=== PATIENT | male | born 1950 | race Caucasian/White ===

== ENCOUNTER → 2016-08-19 | Outpatient (CLI) | payer OTHER ==
[~2016-08-19] MED LIST: B-COCAP2 PO; DIGO0.2518 PO; HYDR-5688 PO; LISI-461 PO; OMEGCAP2 PO; PRED10TA PO; RIVA1TAB4 PO; VITAMIN E PO
[2016-08-19 15:36] LABS: BASO % 0.3 %; BASO ABS # 0.02 K/uL (0-0.2); COMPLETE YES; EOS % 1.3 %; HEMATOCRIT 37.1 % (42-52); LYMPH % 15.9 %; LYMPH ABS # 1.25 K/uL (1.2-3.4); MEAN CORPUSCULAR HEMOGLOBIN 30.1 pg (25-34); MEAN CORPUSCULAR HGB CONC 33.4 g/dl (32-36); MEAN PLATELET VOLUME 9.4 fL (7.4-10.4); MONO % 9.2 %; NEUT % 72.3 %; PLATELET COUNT 367 K/uL (130-400); RED BLOOD COUNT 4.12 M/uL (4.7-6.1); WHITE BLOOD COUNT 7.85 K/uL (4.8-10.8)
[2016-08-19 15:46] LABS: ALT/SGPT 46 U/L (12-78); AST/SGOT 18 U/L (15-37); BLOOD UREA NITROGEN 20 mg/dl (7-18); CALCIUM 9.8 mg/dl (8.5-10.1); CARBON DIOXIDE 28 mmol/L (21-32); CHLORIDE 101 mmol/L (98-107); CREATININE 0.97 mg/dl (0.60-1.40); GLUCOSE 87 mg/dl (70-99); POTASSIUM 4.5 mmol/L (3.5-5.1); SODIUM 137 mmol/L (136-145)
[2016-08-19 15:50] LABS: ALB/GLOB RATIO 1.2 (0.9-2); ALKALINE PHOSPHATASE 63 U/L (45-117)
== END | disposition home or self-care (01) ==
LOC: C.LABSPEC 15:20
PROVIDERS: ATTEND Internal Medicine
DX: I10 Essential (primary) hypertension (principal); I48.91 Unspecified atrial fibrillation; M25.519 Pain in unspecified shoulder

== ENCOUNTER → 2016-10-11 | Outpatient (CLI) | payer OTHER ==
[2016-10-11 14:50] LABS: BASO % 0.1 %; BASO ABS # 0.01 K/uL (0-0.2); COMPLETE YES; HEMATOCRIT 40.2 % (42-52); IG% 0.4 %; LYMPH % 13.5 %; LYMPH ABS # 1.03 K/uL (1.2-3.4); MEAN CELL VOLUME 91.4 fL (80-100); MEAN CORPUSCULAR HEMOGLOBIN 29.3 pg (25-34); MEAN CORPUSCULAR HGB CONC 32.1 g/dl (32-36); MEAN PLATELET VOLUME 9.2 fL (7.4-10.4); MONO % 9.4 %; NEUT % 75.6 %; PLATELET COUNT 273 K/uL (130-400); WHITE BLOOD COUNT 7.62 K/uL (4.8-10.8)
[2016-10-11 15:41] LABS: AST/SGOT 11 U/L (15-37); BLOOD UREA NITROGEN 18 mg/dl (7-18); BUN/CREATININE RATIO 18.6 (10-20); CALCIUM 9.2 mg/dl (8.5-10.1); CARBON DIOXIDE 30 mmol/L (21-32); CHLORIDE 107 mmol/L (98-107); CREATININE 0.97 mg/dl (0.60-1.40); GLUCOSE 130 mg/dl (70-99); POTASSIUM 4.5 mmol/L (3.5-5.1); RHEUMATOID FACTOR < 10.0 U/mL (0-15); SODIUM 141 mmol/L (136-145)
[2016-10-11 15:52] LABS: ALB/GLOB RATIO 1.2 (0.9-2); ALKALINE PHOSPHATASE 51 U/L (45-117); ALT/SGPT 27 U/L (12-78)
[2016-10-11 18:47] LABS: LYME DISEASE AB IGG NEG (NEG); LYME DISEASE AB IGM NEG (NEG)
== END | disposition home or self-care (01) ==
LOC: C.LABSPEC 14:28
PROVIDERS: ATTEND Internal Medicine
DX: I10 Essential (primary) hypertension (principal); R53.83 Other fatigue; M25.50 Pain in unspecified joint; I49.9 Cardiac arrhythmia, unspecified

== ENCOUNTER → 2017-02-10 | Outpatient (CLI) | payer OTHER ==
[~2017-02-10] MED LIST changes: -HYDR-5688 PO
[2017-02-10 13:00] LABS: ALT/SGPT 23 U/L (12-78); AST/SGOT 13 U/L (15-37); BLOOD UREA NITROGEN 32 mg/dl (7-18); BUN/CREATININE RATIO 29.1 (10-20); CALCIUM 9.1 mg/dl (8.5-10.1); CARBON DIOXIDE 26 mmol/L (21-32); CHLORIDE 107 mmol/L (98-107); GLUCOSE 107 mg/dl (70-99); POTASSIUM 4.9 mmol/L (3.5-5.1); SODIUM 139 mmol/L (136-145)
[2017-02-10 13:10] LABS: ALB/GLOB RATIO 1.2 (0.9-2); ALKALINE PHOSPHATASE 54 U/L (45-117)
== END | disposition home or self-care (01) ==
LOC: C.LABSPEC 12:13
PROVIDERS: ATTEND Internal Medicine
DX: I48.91 Unspecified atrial fibrillation (principal); I10 Essential (primary) hypertension; R53.83 Other fatigue; M79.1 Myalgia; R25.2 Cramp and spasm

== ENCOUNTER → 2017-08-17 | Outpatient (CLI) | payer OTHER ==
[2017-08-17 14:42] LABS: BLOOD UREA NITROGEN 15 mg/dl (7-18); CALCIUM 9.9 mg/dl (8.5-10.1); CARBON DIOXIDE 28 mmol/L (21-32); CREATININE 0.93 mg/dl (0.60-1.40); GLUCOSE 131 mg/dl (70-99); POTASSIUM 4.5 mmol/L (3.5-5.1); SODIUM 138 mmol/L (136-145)
== END | disposition home or self-care (01) ==
LOC: C.LABSPEC 12:27
PROVIDERS: ATTEND Internal Medicine
DX: R53.83 Other fatigue (principal); I48.91 Unspecified atrial fibrillation; I10 Essential (primary) hypertension; E78.5 Hyperlipidemia, unspecified

== ENCOUNTER → 2018-02-14 | Outpatient (CLI) | payer OTHER ==
[2018-02-14 13:44] LABS: BASO % 0.1 %; BASO ABS # 0.01 K/uL (0-0.2); EOS % 1.1 %; EOS ABS # 0.09 K/uL (0-0.5); HEMATOCRIT 38.3 % (42-52); HEMOGLOBIN 12.4 g/dL (14.0-18.0); IG# 0.06 K/uL (0.00-0.02); LYMPH % 19.6 %; MEAN CELL VOLUME 91.4 fL (80-100); MEAN CORPUSCULAR HEMOGLOBIN 29.6 pg (25-34); MEAN CORPUSCULAR HGB CONC 32.4 g/dl (32-36); MEAN PLATELET VOLUME 9.2 fL (7.4-10.4); MONO % 9.2 %; MONO ABS # 0.75 K/uL (0.11-0.59); NEUT % 69.3 %; NEUT ABS # 5.64 K/uL (1.4-6.5); PLATELET COUNT 394 K/uL (130-400); RED CELL DISTRIBUTION WIDTH CV 13.3 % (11.5-14.5); WHITE BLOOD COUNT 8.15 K/uL (4.8-10.8)
[2018-02-14 14:15] LABS: ALBUMIN 3.5 gm/dl (3.4-5.0); ALKALINE PHOSPHATASE 52 U/L (45-117); ALT/SGPT 41 U/L (12-78); AST/SGOT 15 U/L (15-37); BLOOD UREA NITROGEN 29 mg/dl (7-18); CALCIUM 9.4 mg/dl (8.5-10.1); CARBON DIOXIDE 26 mmol/L (21-32); CHOLESTEROL 100 mg/dl (0-200); CREATININE 0.95 mg/dl (0.60-1.40); GLUCOSE 88 mg/dl (70-99); LDL CHOLESTEROL (DIRECT) 71 mg/dl; SODIUM 141 mmol/L (136-145); TOTAL PROTEIN 7.2 gm/dl (6.4-8.2)
[2018-02-15 05:50] LABS: HEMOGLOBIN A1C 5.9 % (4.5-5.6)
== END | disposition home or self-care (01) ==
LOC: C.LABSPEC 13:17
PROVIDERS: ATTEND Internal Medicine
DX: R73.9 Hyperglycemia, unspecified (principal); I10 Essential (primary) hypertension; E78.5 Hyperlipidemia, unspecified; I48.91 Unspecified atrial fibrillation; M25.551 Pain in right hip

== ENCOUNTER → 2018-02-19 | Outpatient (CLI) | payer OTHER ==
[2018-02-19 13:02] LABS: BASO % 0.2 %; BASO ABS # 0.02 K/uL (0-0.2); EOS % 1.4 %; EOS ABS # 0.13 K/uL (0-0.5); HEMATOCRIT 38.2 % (42-52); HEMOGLOBIN 12.4 g/dL (14.0-18.0); IG# 0.21 K/uL (0.00-0.02); LYMPH % 13.9 %; LYMPH ABS # 1.28 K/uL (1.2-3.4); MEAN CELL VOLUME 91.6 fL (80-100); MEAN CORPUSCULAR HEMOGLOBIN 29.7 pg (25-34); MEAN CORPUSCULAR HGB CONC 32.5 g/dl (32-36); MEAN PLATELET VOLUME 8.7 fL (7.4-10.4); MONO % 5.9 %; MONO ABS # 0.54 K/uL (0.11-0.59); NEUT % 76.3 %; PLATELET COUNT 401 K/uL (130-400); RED CELL DISTRIBUTION WIDTH CV 13.2 % (11.5-14.5); RED CELL DISTRIBUTION WIDTH SD 44.5 fL (36.4-46.3); WHITE BLOOD COUNT 9.18 K/uL (4.8-10.8)
== END | disposition home or self-care (01) ==
LOC: C.LABBC 10:27
PROVIDERS: ATTEND Family Medicine
DX: M25.559 Pain in unspecified hip (principal)

== ENCOUNTER 2023-07-31 20:00 | Observation (INO) ==
[2023-07-31 22:07] LABS: Basophils # (auto) 0.02 K/uL (0.00-0.20); Basophils % (auto) 0.3 %; Eosinophils # (auto) 0.28 K/uL (0.00-0.50); Eosinophils % (auto) 4.8 %; Hematocrit (blood only) 31.9 % (42.0-52.0); Hemoglobin 10.4 g/dl (14.0-18.0); Immature Granulocytes # (auto) 0.04 K/uL (0.01-0.20); Immature Granulocytes % (auto) 0.7 %; Lymphocytes # (auto) 1.18 K/uL (1.20-3.40); Lymphocytes % (auto) 20.3 %; Mean Corpuscular Hemoglobin 29.9 pg (25.0-34.0); Mean Corpuscular Hgb Conc 32.6 g/dL (32.0-36.0); Mean Corpuscular Volume 91.7 fL (80.0-100.0); Mean Platelet Volume 9.2 fL (9.4-12.4); Monocytes # (auto) 0.53 K/uL (0.11-0.59); Monocytes % (auto) 9.1 %; Neutrophils # (auto) 3.76 K/uL (1.40-6.50); Neutrophils % (auto) 64.8 %; Platelet Count 234 K/uL (130-400); RDW Coefficient of Variation 13.7 % (11.5-14.5); RDW Standard Deviation 45.6 fL (36.4-46.3); Red Blood Count 3.48 M/uL (4.70-6.10); White Blood Count 5.81 K/ul (4.8-10.8)
[2023-07-31 22:25] LABS: Albumin Globulin Ratio 1.5 (0.9-2); Albumin Level 4.4 gm/dl (3.4-5.0); BUN Creatinine Ratio 30.4 (10-20); Bilirubin,Total 0.5 mg/dl (0.2-1.0); Calcium 9.4 mg/dl (8.6-10.3); Creatinine Clr Calc Pharmacy 68.9 ml/min; Est GFR (African American) 54.8 ml/min; Est GFR (Non-African American) 47.3 ml/min; Potassium 5.9 mmol/L (3.5-5.1); Total Protein 7.4 gm/dl (6.0-8.3)
[2023-07-31 22:32] LABS: Troponin I High Sensitivity 7.9 pg/ml (0-20)
[2023-07-31] MEDS: CALCIUM GLUCONATE 1,000 MG/60 ML BAG IV STA (23:23)
[2023-07-31] MEDS: CALCIUM GLUCONATE 10% 1,000 MG in SODIUM CHLOR 0.9% MINI-B 50 ML IV ONE (23:25)
--- NOTE | 2023-07-31 23:50 | Emergency Department Note ---
Impression & Plan Acute hyperkalemia, Acute electrocardiogram changes ED Provider Note HISTORY OF PRESENT ILLNESS: Patient is a 72-year-old male presenting with hyperkalemia. Patient reports he was at an outpatient cardiology clinic appointment today and had laboratory workup done and was called by his repairer pump that his potassium was elevated and he needed to go to the ER for an EKG. Patient denies any chest pain or shortness of breath. He denies any vomiting or abdominal pain. Denies any confusion or headache. He has a previous history of a left nephrectomy. ROS: as above PHYSICAL EXAM: Constitutional: Patient appears in no acute distress. HENT: Head: Normocephalic and atraumatic. Eyes: EOMI, PERRL Mouth/Throat: Mucous membranes moist. Neck: Trachea midline. Neck supple. Cardiovascular: Irregular rhythm. No murmurs, rubs or gallops. Intact distal pulses. Pulmonary/Chest: No respiratory distress. Breath sounds clear and equal bilaterally. No wheezes or rales. Abdominal: Abdomen soft, no tenderness, rebound or guarding. Musculoskeletal: No edema, tenderness or deformity noted. Skin: Warm and dry. No rash, erythema, pallor or cyanosis Psychiatric: Appropriate mood and affect for situation. Neurological: Alert and keenly responsive. CN II-XII grossly intact, moving all extremities equally and fully. MDM: - Vitals signs stable. - History obtained via patient. Patient presents with hyperkalemia. Patient had laboratory workup done outpatient clinic appointment today and was found to be hyperkalemic and was referred to the ER. Denies any complaints on arrival to the ER. - Chronic conditions affecting care: CHF; HTN; HLD; Afib - Differential diagnoses include, but are not limited to: medication reaction; ACS; CKD; dysrhythmia - Order placed for continuous cardiac monitoring. At this time, monitor showed rate of 80 bpm with irregular rhythm, per my interpretation. - External medical records reviewed. Heart failure visit note dated 07/31/2023 was reviewed. He follows in their clinic for nonischemic cardiomyopathy, atrial fibrillation and heart failure. - EKG interpreted by myself showed atrial fibrillation. Rate 80 bpm. QT 358. No acute ischemic changes. However, noted to have some T wave peaking in V3 through V5. - Laboratory workup interpreted by myself showed normal WBC; hyperkalemia (K 5.9); CKD; normal troponin; normal BNP - Patient given 1g IV calcium, 1L NS, 10 units IV insulin and 50 mL IV dextrose for hyperkalemia. - Given patient's hyperkalemia and EKG changes, will admit to hospitalist. - Hyperkalemia likely secondary to patient's entresto medication. - Discussion was had with child care sitter about patient's case and need for admission - Hospitalist consulted for admission - [facility] for further evaluation and management. ASSESSMENT AND PLAN: Diagnosis: hyperkalemia; EKG changes Plan: admit Past Med/Surg History Medical History Atrial fibrillation Degenerative arthritis of knee, bilateral Dilatation of thoracic aorta Dyslipidemia Failed total hip arthroplasty History of cardioversion HTN (hypertension) Mixed hyperlipidemia Osteoarthritis Prediabetes Primary hypertension Surgical History H/O bilateral hip replacements History of adenoidectomy History of cardiac cath History of colonoscopy History of tonsillectomy History of total hip arthroplasty Family History Mother Diabetes Lung cancer Father Heart disease Multiple myeloma Brother Diabetes Heart disease Other No family history of adverse response to anesthesia No significant family history Denies family history of Ovarian cancer Prostate cancer Breast cancer Colorectal cancer Social History Smoking Status: Never smoker Second Hand Exposure: No; Do You Dip or Chew Tobacco: No; Hx Alcohol Use: Yes Hx Substance Use: No Preferred Language: Welsh Communication Ability: Effective Visual Impairment: No Limitations Hearing Ability: Hard of Hearing Manager Integrated Required: No Beliefs That Will Affect Care: None marital status: Current Living Situation: Spouse current occupational status: employed and retired Feels Safe at Home: Yes Dental Care, Regularly: No Seatbelt Use: always Assistive Devices: None Allergies Allergies Allergy/AdvReac Type Severity Reaction Status Date / Time No Known Allergies Allergy Unknown Verified 07/31/23 13:58 Home Meds Home Medications Medication Instructions Recorded Confirmed rivaroxaban 20 mg tablet (Xarelto) 20 mg PO QAM 04/19/18 08/01/23 vitamin B complex 1 cap PO QAM 01/28/22 08/01/23 multivitamin 1 tab PO QAM 04/07/22 08/01/23 omega-3 fatty acids-fish oil 360 1 cap PO QAM 04/07/22 08/01/23 mg-1,200 mg capsule (Fish Oil) selenium 100 mcg tablet 100 mcg PO QAM 04/07/22 08/01/23 ashwagandha extract 1 dose PO .qd 06/13/23 08/01/23 lxcnkzj-slbb-ugrhz-oreg-capryl 1 dose PO .qd 06/13/23 08/01/23 calcium carbonate 500 mg calcium 500 mg PO .COMPLEX 07/10/23 08/01/23 (1,250 mg) chewable tablet (Calcium 500) magnesium 200 mg tablet 400 mg PO QAM 07/10/23 08/01/23 digoxin 250 mcg (0.25 mg) tablet 250 mcg PO QAM 08/01/23 08/01/23 metoprolol succinate 100 mg 100 mg PO QAM 08/01/23 08/01/23 tablet,extended release 24 hr sacubitril 49 mg-valsartan 51 mg 1 tab PO .ON HOLD 08/01/23 08/01/23 tablet (Entresto) Previous Rx's Medication Instructions Recorded furosemide 20 mg tablet 20 mg PO DAILY PRN weight gain, 07/31/23 edema, SOB #30 tabs Results & Data (ED) Vital Signs Vital Signs - 24 hr 07/31/23 20:52 07/31/23 23:11 07/31/23 23:26 Temperature 36.6 C Temperature Source Temporal Artery Scan Pulse Rate 78 73 Pulse Rate [Apical] 80 Respiratory Rate 20 21 Respiratory Effort / Characteristics Non-Labored Spontaneous Respiratory Depth Normal Respiratory Pattern Regular Blood Pressure 134/84 Blood Pressure [Right Arm] 133/82 Blood Pressure Mean 100 Blood Pressure Mean [Right Arm] 99 Pulse Oximetry 96 97 Oxygen Delivery Method Room Air Room Air Sepsis Recent Fever Within 48 Hours No Sepsis New/Unexplained Change in Mental Status No Sepsis Action Taken by Nursing No Action Required Laboratory Data 07/31/23 21:50 07/31/23 21:50 Lab Results 07/31/23 Range/Units 21:50 WBC 5.81 (4.8-10.8) K/ul RBC 3.48 L (4.70-6.10) M/uL Hgb 10.4 L (14.0-18.0) g/dl Hct 31.9 L (42.0-52.0) % MCV 91.7 (80.0-100.0) fL MCH 29.9 (25.0-34.0) pg MCHC 32.6 (32.0-36.0) g/dL RDW Std Deviation 45.6 (36.4-46.3) fL RDW Coeff of Dennis 13.7 (11.5-14.5) % Plt Count 234 (130-400) K/uL MPV 9.2 L (9.4-12.4) fL Immature Gran % (Auto) 0.7 % Neut % (Auto) 64.8 % Lymph % (Auto) 20.3 % [place] % (Auto) 9.1 % Eos % (Auto) 4.8 % Baso % (Auto) 0.3 % Neut # (Auto) 3.76 (1.40-6.50) K/uL Lymph # (Auto) 1.18 L (1.20-3.40) K/uL [place] # (Auto) 0.53 (0.11-0.59) K/uL Eos # (Auto) 0.28 (0.00-0.50) K/uL Baso # (Auto) 0.02 (0.00-0.20) K/uL Immature Gran # (Auto) 0.04 (0.01-0.20) K/uL Sodium 137 (136-145) mmol/L Potassium 5.9 H (3.5-5.1) mmol/L Chloride 108 H (98-107) mmol/L Carbon Dioxide 24 (21-32) mmol/L Anion Gap 5 (3-11) BUN 45 H (6-23) mg/dl Creatinine 1.48 H (0.6-1.4) mg/dl Est Cr Clr Drug Dosing 68.9 ml/min Est GFR ( Amer) 54.8 ml/min Est GFR (Non-Af Amer) 47.3 ml/min BUN/Creatinine Ratio 30.4 H (10-20) Glucose 78 (70-99(Fasting)) mg/dl Calcium 9.4 (8.6-10.3) mg/dl Magnesium 2.0 (1.7-2.4) mg/dl Total Bilirubin 0.5 (0.2-1.0) mg/dl AST 13 (13-39) U/L ALT 10 (7-52) U/L Alkaline Phosphatase 50 (34-104) U/L Troponin I High Sens 7.9 (0-20) pg/ml B-Natriuretic Peptide 56 (0-100) pg/ml Total Protein 7.4 (6.0-8.3) gm/dl Albumin 4.4 (3.4-5.0) gm/dl Globulin 3.0 (2.5-4.0) gm/dl Albumin/Globulin Ratio 1.5 (0.9-2) Administered Medications Discontinued Medications Dextrose (Dextrose 50% 50 Ml Syringe) 50 ml IV NOW STA Stop: 07/31/23 22:49 Last Admin: 08/01/23 00:10 Dose: 50 ml Documented By: MED Sodium Chloride (Nss) 1,000 mls @ 999 mls/hr IV .Q1H1M ONE Stop: 07/31/23 23:48 Last Admin: 08/01/23 00:17 Dose: 999 mls/hr Documented By: MED Calcium Gluconate () 1,000 mg in 60 mls @ 240 mls/hr IV NOW STA Stop: 07/31/23 23:02 Last Admin: 07/31/23 23:23 Dose: 240 mls/hr Documented By: MED Calcium Gluconate 1,000 mg/ (Sodium Chloride) 60 mls @ 240 mls/hr IV NOW ONE Stop: 07/31/23 23:02 Last Admin: 07/31/23 23:25 Dose: Not Given Documented By: MED Insulin Human Regular 10 units (/ Syringe) 9.9 mls @ 3 mls/sec IV ONE STA Stop: 07/31/23 22:49 Last Admin: 08/01/23 00:16 Dose: 3 mls/sec Documented By: MED Co-signed By: CHAVEZ Discharge Plan Visit Data Chief Complaint: Referred by Doctor Stated Complaint: PT NEEDS ECG ED Provider: Nydia Escobar Discharge Problem: Acute hyperkalemia, Acute electrocardiogram changes Forms Stand Alone Forms: [facility] Prescriptions Prescriptions: No Action ashwagandha extract 1 dose PO .qd kmwbgxa-oyhs-afpto-oreg-capryl 1 dose PO .qd furosemide 20 mg tablet 20 mg PO DAILY PRN (Reason: weight gain, edema, SOB) Qty: 30 3RF Xarelto 20 mg Tablet 20 mg PO QAM vitamin B complex Capsule 1 cap PO QAM multivitamin Tablet 1 tab PO QAM selenium 100 mcg tablet 100 mcg PO QAM omega-3 fatty acids-fish oil [Fish Oil] 360-1,200 mg capsule 1 cap PO QAM magnesium 200 mg tablet 400 mg PO QAM calcium carbonate [Calcium 500] 500 mg calcium (1,250 mg) tablet,chewable 500 mg PO .COMPLEX Rx Instructions: 500 mg orally 2X WK; metoprolol succinate 100 mg tablet extended release 24 hr 100 mg PO QAM digoxin 250 mcg (0.25 mg) tablet 250 mcg PO QAM Entresto 49-51 mg tablet 1 tab PO .ON HOLD Rx Instructions: ordered am and pm Referrals Referrals: Anastacia Hdz MD [Primary Care Provider] -
[2023-08-01] MEDS: DEXTROSE 50% 50 ML SYRINGE IV STA (00:10)
[2023-08-01] MEDS: INSULIN HUMAN REGULAR PER UNIT 10 UNITS in SYRINGE 9.9 ML IV STA (00:16)
[2023-08-01] MEDS: SODIUM CHLORIDE 0.9% 1,000 ML IV ONE (00:17)
--- NOTE | 2023-08-01 01:10 | History & Physical Report ---
Date of Service August 01, 2023 Assessment & Plan (1) Acute hyperkalemia: (2) Acute electrocardiogram changes: (3) Permanent atrial fibrillation: (4) HFrEF (heart failure with reduced ejection fraction): (5) Nonischemic cardiomyopathy: (6) Primary hypertension: (7) Renal oncocytoma of left kidney: (8) Acute kidney injury superimposed on CKD: Plan Acute hyperkalemia with peaked T waves on EKG/acute kidney injury superimposed on CKD- Potassium 5.9 and creatinine 1.48 upon admission After receiving normal saline 1 L, calcium gluconate 1 g IV, D50 followed by regular insulin 10 units IV: Potassium 4.9 and creatinine 1.41 Baseline creatinine on 07/25/2022 was 1.09, with new baseline on 06/28/2023 of 1.41 Patient prefers no additional IV fluids, and will further address fluid intake orally Continue to hold Entresto Continue increase metoprolol succinate dose of 100 mg daily Digoxin level 0.7, despite renal insufficiency, will continue current dosing Permanent atrial fibrillation/hypertension/cardiomyopathy/HFrEF- Continue digoxin, metoprolol succinate, Xarelto Hold Entresto as noted until seen by heart failure clinic History of Present Illness Chief Complaint: The patient was referred to the emergency department after having outpatient cardiology laboratories which showed elevated potassium Primary Care Provider: Anastacia Hdz MD The patient is a 72-year-old male with a past medical history including renal oncocytoma of left kidney status post nephrectomy, mediastinal adenopathy, hypertension, mixed hyperlipidemia, permanent atrial fibrillation, thoracic aortic aneurysm, HFrEF, nonischemic cardiomyopathy, mitral regurgitation and tricuspid regurgitation. He reports that outpatient cardiology laboratories revealed elevated potassium, which time he was told to hold his Entresto, his metoprolol succinate was doubled from 50 to 100 mg, and he was advised to come to the ED for an EKG and further assessment. Patient reports that he had been off his digoxin for a brief and full around a general surgery that resulted with resulting complications. He at that time was retaining a lot of fluid, and reports that when he resumed the digoxin he felt much better, and had lost significant amount of fluid at that time. Allergies Allergy/AdvReac Type Severity Reaction Status Date / Time No Known Allergies Allergy Unknown Verified 07/31/23 13:58 Home Medications Medication Instructions Recorded Confirmed Type rivaroxaban 20 mg tablet (Xarelto) 20 mg PO QAM 04/19/18 08/01/23 History vitamin B complex 1 cap PO QAM 01/28/22 08/01/23 History multivitamin 1 tab PO QAM 04/07/22 08/01/23 History omega-3 fatty acids-fish oil 360 1 cap PO QAM 04/07/22 08/01/23 History mg-1,200 mg capsule (Fish Oil) selenium 100 mcg tablet 100 mcg PO QAM 04/07/22 08/01/23 History ashwagandha extract 1 dose PO .qd 06/13/23 08/01/23 History nnluvrm-zjbe-etadg-oreg-capryl 1 dose PO .qd 06/13/23 08/01/23 History calcium carbonate 500 mg calcium 500 mg PO .COMPLEX 07/10/23 08/01/23 History (1,250 mg) chewable tablet (Calcium 500) magnesium 200 mg tablet 400 mg PO QAM 07/10/23 08/01/23 History furosemide 20 mg tablet 20 mg PO DAILY PRN weight gain, 07/31/23 08/01/23 Rx edema, SOB #30 tabs digoxin 250 mcg (0.25 mg) tablet 250 mcg PO QAM 08/01/23 08/01/23 History metoprolol succinate 100 mg 100 mg PO QAM 08/01/23 08/01/23 History tablet,extended release 24 hr sacubitril 49 mg-valsartan 51 mg 1 tab PO .ON HOLD 08/01/23 08/01/23 History tablet (Entresto) Past Med/Surg History Medical History Atrial fibrillation Degenerative arthritis of knee, bilateral Dilatation of thoracic aorta Dyslipidemia Failed total hip arthroplasty History of cardioversion HTN (hypertension) Mixed hyperlipidemia Osteoarthritis Prediabetes Primary hypertension Surgical History H/O bilateral hip replacements History of adenoidectomy History of cardiac cath History of colonoscopy History of tonsillectomy History of total hip arthroplasty Family History Mother Diabetes Lung cancer Father Heart disease Multiple myeloma Brother Diabetes Heart disease Other No family history of adverse response to anesthesia No significant family history Denies family history of Ovarian cancer Prostate cancer Breast cancer Colorectal cancer Social History Smoking Status: Never smoker Second Hand Exposure: No; Do You Dip or Chew Tobacco: No; Hx Alcohol Use: Yes Hx Substance Use: No Preferred Language: Kittitian Communication Ability: Effective Visual Impairment: No Limitations Hearing Ability: Hard of Hearing Mural Painter Required: No Beliefs That Will Affect Care: None marital status: Current Living Situation: Spouse current occupational status: employed and retired Feels Safe at Home: Yes Dental Care, Regularly: No Seatbelt Use: always Assistive Devices: None Review of Systems Review of Systems: The patient denies chest pain, palpitations, cough, sore throat, fevers, chills, sweats, fatigue, nausea, vomiting, diarrhea , constipation, abdominal pain, pelvic pain, blood in urine or stool, dysuria, urinary frequency or urgency, lightheadedness, dizziness, headache, memory loss, loss of consciousness, rash, abnormal bruising or bleeding, imbalance, focal or generalized weakness, numbness or tingling in arms or legs, generalized arthralgias or myalgias, back or neck pain, or night sweats. The review of systems is otherwise negative other than for that already noted above, and at least 10 systems have been reviewed. Physical Exam Physical Exam: The patient is awake, alert and oriented 3, well developed and well nourished, normocephalic and atraumatic, lying in bed and in no acute distress. HEENT--PERRL, EOMI, mucous membranes and oropharynx normal Neck--supple. No JVD. No bruits. Thyroid normal, trachea midline, no adenopathy. Heart--atrial fibrillation. No murmurs, rubs or gallops. Lungs--clear bilaterally, no respiratory distress, no accessory muscle use. Abdomen--normal bowel sounds and soft. Nontender. Nondistended, no hernias or masses, no organomegaly. Extremities--no cyanosis or clubbing. 1+ bilateral pretibial pitting edema. Dermatologic--normal skin turgor, normal color, no abnormal lymph nodes, no rash. Neurologic--cranial nerves II through XII grossly intact. Rheumatologic--normal range of motion. Psychiatric--normal affect. Results & Data Results & Data Vital Signs (Past 12 Hours) Vital Signs Temp Pulse Pulse Resp BP BP Pulse Ox 07/31/23 23:26 80 21 133/82 97 07/31/23 23:11 73 07/31/23 20:52 36.6 C 78 20 134/84 96 O2 Del Method 07/31/23 23:26 Room Air 07/31/23 23:11 07/31/23 20:52 Room Air Laboratory Results Laboratory Results WBC 5.81 K/ul (4.8-10.8) 07/31/23 21:50 RBC 3.48 M/uL (4.70-6.10) L 07/31/23 21:50 Hgb 10.4 g/dl (14.0-18.0) L 07/31/23 21:50 Hct 31.9 % (42.0-52.0) L 07/31/23 21:50 MCV 91.7 fL (80.0-100.0) 07/31/23 21:50 MCH 29.9 pg (25.0-34.0) 07/31/23 21:50 MCHC 32.6 g/dL (32.0-36.0) 07/31/23 21:50 RDW Std Deviation 45.6 fL (36.4-46.3) 07/31/23 21:50 RDW Coeff of [place] 13.7 % (11.5-14.5) 07/31/23 21:50 Plt Count 234 K/uL (130-400) 07/31/23 21:50 MPV 9.2 fL (9.4-12.4) L 07/31/23 21:50 Immature Gran % (Auto) 0.7 % 07/31/23 21:50 Neut % (Auto) 64.8 % 07/31/23 21:50 Lymph % (Auto) 20.3 % 07/31/23 21:50 [place] % (Auto) 9.1 % 07/31/23 21:50 Eos % (Auto) 4.8 % 07/31/23 21:50 Baso % (Auto) 0.3 % 07/31/23 21:50 Neut # (Auto) 3.76 K/uL (1.40-6.50) 07/31/23 21:50 Lymph # (Auto) 1.18 K/uL (1.20-3.40) L 07/31/23 21:50 [place] # (Auto) 0.53 K/uL (0.11-0.59) 07/31/23 21:50 Eos # (Auto) 0.28 K/uL (0.00-0.50) 07/31/23 21:50 Baso # (Auto) 0.02 K/uL (0.00-0.20) 07/31/23 21:50 Immature Gran # (Auto) 0.04 K/uL (0.01-0.20) 07/31/23 21:50 Sodium 140 mmol/L (136-145) 08/01/23 01:35 Potassium 4.9 mmol/L (3.5-5.1) 08/01/23 01:35 Chloride 111 mmol/L (98-107) H 08/01/23 01:35 Carbon Dioxide 23 mmol/L (21-32) 08/01/23 01:35 Anion Gap 6 (3-11) 08/01/23 01:35 BUN 47 mg/dl (6-23) H 08/01/23 01:35 Creatinine 1.41 mg/dl (0.6-1.4) H 08/01/23 01:35 Est Cr Clr Drug Dosing 72.3 ml/min 08/01/23 01:35 Est GFR ( Amer) 58.1 ml/min 08/01/23 01:35 Est GFR (Non-Af Amer) 50.1 ml/min 08/01/23 01:35 BUN/Creatinine Ratio 33.3 (10-20) H 08/01/23 01:35 Glucose 67 mg/dl (70-99(Fasting)) L 08/01/23 01:35 POC Glucose 92 mg/dl (70-99) 08/01/23 01:51 Calcium 9.1 mg/dl (8.6-10.3) 08/01/23 01:35 Magnesium 2.0 mg/dl (1.7-2.4) 07/31/23 21:50 Total Bilirubin 0.5 mg/dl (0.2-1.0) 07/31/23 21:50 AST 13 U/L (13-39) 02/05/24 21:50 ALT 10 U/L (7-52) 07/31/23 21:50 Alkaline Phosphatase 50 U/L (34-104) 07/31/23 21:50 Troponin I High Sens 7.9 pg/ml (0-20) 07/31/23 21:50 B-Natriuretic Peptide 56 pg/ml (0-100) 07/31/23 21:50 Total Protein 7.4 gm/dl (6.0-8.3) 07/31/23 21:50 Albumin 4.4 gm/dl (3.4-5.0) 07/31/23 21:50 Globulin 3.0 gm/dl (2.5-4.0) 07/31/23 21:50 Albumin/Globulin Ratio 1.5 (0.9-2) 07/31/23 21:50 Digoxin 0.7 ng/ml (0.8-2.0) L 08/01/23 01:35 Code Status & VTE Plan Code Status Full code VTE Prophylaxis Plan VTE Prophylaxis will be ordered: Yes PG Care Time/CCT Total # of Minutes Spent Total Time Spent with Patient: Total time spent is greater than 50% in coordination of care (as documented) at patient's floor/unit and/or counseling patient: Coding Level of Care Code 86271 INT INP/OBS CARE 3/75MIN Diagnoses Acute hyperkalemia E87.5 Acute electrocardiogram changes R94.31 Permanent atrial fibrillation I48.21 HFrEF (heart failure with reduced ejection fraction) I50.20 Nonischemic cardiomyopathy I42.8 Primary hypertension I10 Renal oncocytoma of left kidney D30.02 Acute kidney injury superimposed on CKD N17.9; N18.9
[2023-08-01 02:05] LABS: BUN Creatinine Ratio 33.3 (10-20); Calcium 9.1 mg/dl (8.6-10.3); Creatinine Clr Calc Pharmacy 72.3 ml/min; Est GFR (African American) 58.1 ml/min; Est GFR (Non-African American) 50.1 ml/min; Potassium 4.9 mmol/L (3.5-5.1)
[2023-08-01] MEDS ORDERED: ACETAMINOPHEN 325 MG TAB PO PRN (02:48)
[2023-08-01] MEDS ORDERED: ONDANSETRON INJ 2 MG/ML 2 ML VIAL IV PRN (02:48)
[2023-08-01] MEDS: STAT IV/IM STA (07:34)
--- NOTE | 2023-08-01 08:10 | Electrocardiogram Report ---
Test Reason : Blood Pressure : / mmHG Vent. Rate : 080 BPM Atrial Rate : 000 BPM P-R Int : 000 ms QRS Dur : 102 ms QT Int : 358 ms P-R-T Axes : 000 042 064 degrees QTc Int : 412 ms Atrial fibrillation Abnormal ECG When compared with ECG of 26-AUG-2020 12:14, No significant change was found Confirmed by Chon Doyle ([id number]) on 08/01/2023 8:10:14 AM Referred By: REFERRED SELF Confirmed By:Chon Doyle
[2023-08-01] MEDS: MAGNESIUM OXIDE 400 MG TAB PO SCH (08:37)
[2023-08-01] MEDS: OMEGA-3 (PURIFIED FISH OIL) 1 GM CAP PO SCH (08:37)
[2023-08-01] MEDS: MULTIVITAMIN TAB PO SCH (08:38)
[2023-08-01] MEDS: METOPROLOL SUCC 50MG EXT REL TAB PO SCH (08:38)
[2023-08-01] MEDS: VITAMIN B COMPLEX TAB PO SCH (08:38)
[2023-08-01 10:50] LABS: BUN Creatinine Ratio 33.3 (10-20); Est GFR (African American) 64.7 ml/min; Est GFR (Non-African American) 55.8 ml/min; Magnesium 1.9 mg/dl (1.7-2.4); Potassium 5.5 mmol/L (3.5-5.1)
--- NOTE | 2023-08-01 11:02 | History & Physical Bridge Note ---
Date of Service August 01, 2023 History & Physical Bridge Note I have examined the patient, reviewed the History & Physical and in the interval since the performance of the History & Physical I have noted the following changes of clinical significance: Pt feeling well, no SOB over usual, no CP. Leg swelling he says is the best it has been in a while. He reports he has been eating a lot of potasisum lately and making a lot of smoothies with bananas and grapes and other fruits. Tele with rate controlled Afib Vitals reviewed NAD, obese, AAOx3 irreg irreg, no mger, nl S1S2, legs 1+ pitting edema to knees bilat chronic venous stasis changes of legs Abd +BS soft incision scars from nephrectomy and hernia repair healed, small mass palpable left of midline incision nontender, no erythema-pt reports told this is a resolving hematoma from the recent surgery Repeat BMP now again shows hyperkalemia with K+ 5.5, commercial property manager improved to 1.2 Repeat ECG no further peaked T waves Would recommend continued stay for ongoing hyperkalemia, likely related to Entresto use, possibly some hemolysis from the resolving hematoma although this is fairly small. Check BMP again this afternoon at 1600 Give Patiromer x 1 dose now Give lasix 20mg IV x 1 now Change diet to low K+ diet
--- NOTE | 2023-08-01 11:06 | Electrocardiogram Report ---
Test Reason : Blood Pressure : / mmHG Vent. Rate : 084 BPM Atrial Rate : 000 BPM P-R Int : 000 ms QRS Dur : 104 ms QT Int : 360 ms P-R-T Axes : 000 025 044 degrees QTc Int : 425 ms Atrial fibrillation with premature ventricular or aberrantly conducted complexes Abnormal ECG When compared with ECG of 31-JUL-2023 21:41, No significant change was found Confirmed by Chon Doyle ([id number]) on 08/01/2023 11:06:35 AM Referred By: REFERRED SELF Confirmed By:Chon Doyle
[2023-08-01] MEDS: PATIROMER CALCIUM SORBITEX 8.4 GM PACK PO SCH (11:47)
[2023-08-01] MEDS: FUROSEMIDE INJ 20 MG/2 ML VIAL IV ONE (11:47)
[2023-08-01 13:25] LABS: BUN Creatinine Ratio 31.5 (10-20); Calcium 9.7 mg/dl (8.6-10.3); Creatinine Clr Calc Pharmacy 79.2 ml/min; Est GFR (African American) 65.9 ml/min; Est GFR (Non-African American) 56.9 ml/min; Potassium 5.7 mmol/L (3.5-5.1)
--- NOTE | 2023-08-01 13:55 | Discharge Summary ---
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 He reports that outpatient cardiology laboratories revealed elevated potassium, which time he was told to hold his Entresto, his metoprolol succinate was doubled from 50 to 100 mg, and he was advised to come to the ED for an EKG and further assessment. Patient reports that he had been off his digoxin for a brief and full around a general surgery that resulted with resulting complications. He at that time was retaining a lot of fluid, and reports that when he resumed the digoxin he felt much better, and had lost significant amount of fluid at that time. Principal Dx & Hospital Course #1 = Principal Diagnosis (1) Acute hyperkalemia: Acute hyperkalemia with peaked T waves on EKG/acute kidney injury superimposed on CKD- Potassium 5.9 and creatinine 1.48 upon admission down from 6.1 on outpatient labs earlier that day Was placed on Entresto as an outpt 2 weeks prior. has solitary kidney Reports he has been eating a lot of potassium-rich foods at home after we reviewed what those foods were. In the ER, he received normal saline 1 L, calcium gluconate 1 g IV, D50 followed by regular insulin 10 units IV Potassium 4.9 and creatinine 1.41 after these interventions, however the potassium continued to trend back upward on repeat labs and was 5.5--> was given Patiromer x 1 dose and IV lasix 20mg. He insisted on leaving for an important work meeting against medical advice. I did check the labs again but it had only been not quite 2 hours after the additional interventions--> K still high at 5.7 but booking officer improving Pt is leaving AMA but did say he would get labs drawn tomorrow AM at 8:00 before he leaves town again for another work trip. He will continue to HOLD the Entresto, eat low potassium diet. I discussed his care with RICH Spangler of CHF clinic who is aware and will continue to manage his CHF and check labs as an outpt Pt is aware that high potassium levels can cause (2) Acute electrocardiogram changes: 2/2 hyperkalemia, repeat ECG improved (3) Permanent atrial fibrillation: rate controlled continue Toprol XL 100mg daily which is a higher dose than previous continue digoxin 250 mcg daily dig level low at 0.7 (4) HFrEF (heart failure with reduced ejection fraction): follows with CHF clinic, Cardiology nonischemic, mid range EF holding Entresto as above for hyperkalemia, continue Toprol XL not on diuretics but is on digoxin for rate control (5) Primary hypertension: BPs controlled continue home meds (6) Renal oncocytoma of left kidney: recent nephrectomy and subsequent ventral hernia repair not cancerous (7) Acute kidney injury superimposed on CKD: as above, improved Plan Dispo- left AMA with worsening hyperkalemia Discharge Exam Constitutional WD/WN, vitals as above Neck trachea midline, no thyromegaly Respiratory normal respiratory effort, lungs clear to auscultation Cardiovascular Rate/Rhythm: regular rate and + irregularly irregular Heart Sounds: no murmur Extremities: + edema (1+ pitting edema to knees bilat) Chest (Breasts) Chest: normal inspection of chest Gastrointestinal (Abdomen) Inspection/Auscultation: normal bowel sounds; + abdomen abnormal to inspection (two vertical incisional scars-midline and left abdomen) and abdomen not distended small 3 cm palpable hematoma under skin left mid abdomen, no erythema Musculoskeletal Extremities: no cyanosis and no clubbing Skin venous stasis changes bilat legs Neurologic moves all extremities and awake; no focal motor deficits Psychiatric A+Ox3, euthymic affect Updated Medication List Medication Instructions Recorded Confirmed Type rivaroxaban 20 mg tablet (Xarelto) 20 mg PO QAM 04/19/18 08/02/23 History vitamin B complex 1 cap PO QAM 01/28/22 08/02/23 History multivitamin 1 tab PO QAM 04/07/22 08/02/23 History omega-3 fatty acids-fish oil 360 1 cap PO QAM 04/07/22 08/02/23 History mg-1,200 mg capsule (Fish Oil) selenium 100 mcg tablet 100 mcg PO QAM 04/07/22 08/02/23 History ashwagandha extract 1 dose PO .qd 06/13/23 08/02/23 History vltdouz-nznw-jfioi-oreg-capryl 1 dose PO .qd 06/13/23 08/02/23 History calcium carbonate 500 mg calcium 500 mg PO .COMPLEX 07/10/23 08/02/23 History (1,250 mg) chewable tablet (Calcium 500) magnesium 200 mg tablet 400 mg PO QAM 07/10/23 08/02/23 History furosemide 20 mg tablet 20 mg PO DAILY PRN weight gain, 07/31/23 08/02/23 Rx edema, SOB #30 tabs digoxin 250 mcg (0.25 mg) tablet 250 mcg PO QAM 08/01/23 08/02/23 History metoprolol succinate 100 mg 100 mg PO QAM 08/01/23 08/02/23 History tablet,extended release 24 hr sacubitril 49 mg-valsartan 51 mg 1 tab PO .ON HOLD 08/01/23 08/02/23 History tablet (Entresto) lisinopril 40 mg tablet 40 mg PO DAILY 08/02/23 08/02/23 History Hospital Stay Data Consultations 08/01/23 00:12 ED Decision to Admit Stat Discharge Instructions Given to Patient (Per Discharging Provider) Left against medical advice Total Time Total Time Spent Total Time Spent (In Minutes): 45 min Coding Level of Care Code 09261 INP/OBS DISCH >30 MIN Diagnoses Acute hyperkalemia E87.5 Acute electrocardiogram changes R94.31 Permanent atrial fibrillation I48.21 HFrEF (heart failure with reduced ejection fraction) I50.20 Primary hypertension I10 Renal oncocytoma of left kidney D30.02 Acute kidney injury superimposed on CKD N17.9; N18.9
[2023-08-01] MEDS ORDERED: DIGOXIN 0.25 MG TAB PO SCH (16:00)
[2023-08-01] MEDS ORDERED: RIVAROXABAN 20 MG TAB PO SCH (16:30)
== END 2023-08-01 13:50 | disposition left against medical advice (07) ==
LOC: EDINP 20:00 → ED 20:00 → SUATTDRO 08-01 01:16 → EDINP 08-01 02:48

== ENCOUNTER 2023-10-02 19:49 | Observation (INO) ==
--- NOTE | 2023-10-02 20:02 | ED Triage Note ---
Date of Service October 02, 2023 Provider in Triage Author: Maxwell Bryant History of Present Illness This patient was briefly evaluated while in triage. An abbreviated physical exam was performed. This patient is a 72-year-old Male who presents to the ED for evaluation of a low heart rate and low blood pressure, with his aggression. Patient reports that his symptoms started around 4 PM. Patient did have an appointment at Dr. Tai's office this morning, but they did not check his vital signs on that visit. Patient reports that his lightheadedness is intermittent in nature. Patient had a hernia repair in May with heart rate into the teens. Lock Expert (Yajaira Spangler) has been playing with his medications. Patient denies any chest pain or shortness of breath. Physical Exam CONSTITUTIONAL: Healthy and well nourished. HEENT: No scleral icterus or conjunctival injection. RESPIRATORY: Clear to auscultation bilaterally with no wheezing, crackles, rhonchi or stridor. CARDIOVASCULAR: Irregular and bradycardic rhythm with no murmurs, rubs or gallops. GASTROINTESTINAL: Bowel sounds present in all quadrants. MUSCULOSKELETAL: Full range of motion of all joints without discomfort. INTEGUMENTARY: No rash or other significant dermatologic conditions noted. HEMATOLOGIC: No ecchymosis or petechiae. PSYCHIATRIC: Positive affect. NEUROLOGIC: No focal neurologic deficits noted. Initial orders for labs and / or imaging were placed and patient was placed in the waiting area until a bed is available. Please see further documentation for the full ED course.
[2023-10-02] MEDS: SODIUM CHLORIDE 0.9% 500 ML IV STA (20:18)
[2023-10-02 20:36] LABS: Basophils # (auto) 0.01 K/uL (0.00-0.20); Basophils % (auto) 0.1 %; Eosinophils # (auto) 0.04 K/uL (0.00-0.50); Eosinophils % (auto) 0.5 %; Hematocrit (blood only) 35.1 % (42.0-52.0); Hemoglobin 11.1 g/dl (14.0-18.0); Immature Granulocytes # (auto) 0.04 K/uL (0.01-0.20); Immature Granulocytes % (auto) 0.5 %; Lymphocytes # (auto) 0.65 K/uL (1.20-3.40); Lymphocytes % (auto) 8.9 %; Mean Corpuscular Hemoglobin 28.9 pg (25.0-34.0); Mean Corpuscular Hgb Conc 31.6 g/dL (32.0-36.0); Mean Corpuscular Volume 91.4 fL (80.0-100.0); Mean Platelet Volume 9.4 fL (9.4-12.4); Monocytes # (auto) 0.36 K/uL (0.11-0.59); Monocytes % (auto) 4.9 %; Neutrophils # (auto) 6.21 K/uL (1.40-6.50); Neutrophils % (auto) 85.1 %; Platelet Count 190 K/uL (130-400); RDW Coefficient of Variation 13.7 % (11.5-14.5); RDW Standard Deviation 45.8 fL (36.4-46.3); Red Blood Count 3.84 M/uL (4.70-6.10); White Blood Count 7.31 K/ul (4.8-10.8)
[2023-10-02 20:55] LABS: Albumin Globulin Ratio 1.8 (0.9-2); Albumin Level 4.9 gm/dl (3.4-5.0); BUN Creatinine Ratio 27.8 (10-20); Bilirubin,Total 0.6 mg/dl (0.2-1.0); Calcium 9.3 mg/dl (8.6-10.3); Creatinine Clr Calc Pharmacy 59.8 ml/min; Est GFR (African American) 44.4 ml/min; Est GFR (Non-African American) 38.3 ml/min; Globulin 2.8 gm/dl (2.5-4.0); Potassium 5.8 mmol/L (3.5-5.1); Total Protein 7.7 gm/dl (6.0-8.3)
[2023-10-02 21:01] LABS: Troponin I High Sensitivity 7.3 pg/ml (0-20)
[2023-10-02 21:10] LABS: Thyroid Stimulating Hormone 5.228 uIu/ml (0.300-4.500)
[2023-10-02 21:16] LABS: Partial Thromboplastin Time 29 Seconds (21-31); Prothrombin Time 11.2 Seconds (9.0-12.0)
[2023-10-02 21:45] LABS: T4 Free Thyroxine 0.82 ng/dl (0.61-1.60)
--- NOTE | 2023-10-02 22:47 | Emergency Department Note ---
Impression & Plan Bradycardia, Atrial fibrillation, Hypertension, Acute hyperkalemia, MELLY (acute kidney injury) ED Provider Note NAME: MICHAEL JAVIER AGE: 72 SEX: M : 1950 ARRIVES VIA: Walk-In INFORMANT: [Patient] ED PROVIDER(S): [Anastacio Jo MD] CHIEF COMPLAINT: Bradycardia HISTORY OF PRESENT ILLNESS: The patient is a 72-year-old male with a history of A-fib. The patient states that lately, his doctors have been adjusting his medications. He used to take digoxin twice a day, he is now taking it once a day. He was started on metoprolol 50 mg daily and is now up to 200 mg a day. His dosing daily of 200 mg has been for the last week. The patient states that today, before arrival, he felt some rushes to his head. He was not really dizzy, there was no chest pain, no shortness of breath. He was sitting at the time he noticed things. He took his vital sign readings on his blood pressure cuff. His blood pressure was low normal. His pulse was in the 30s. This persisted. He spoke with his doctors office and was referred to the ER. The patient states that he had a head jett when walking into the ER but has not really noticed that since he has been on the monitor. He did receive a 500 cc saline bolus prior to my evaluation. The patient admits that he has not taken his metoprolol yet today. PMHx/PSHx/Social Hx: See Below PHYSICAL EXAM: GENERAL: Patient is in no acute distress. HEENT: No acute trauma, normocephalic atraumatic, mucous membranes moist, no nasal congestion. NECK: No stridor, no adenopathy, no meningismus, trachea is midline. LUNGS: Clear to auscultation bilaterally, no wheeze, no rhonchi, breath sounds equal. HEART: Irregular rhythm, normal rate, no murmurs. ABDOMEN: Soft, nontender, no peritonitis. EXTREMITIES: No cyanosis, full range of motion of all the joints without pain or difficulty. Moderate bilateral pedal edema with some chronic skin change NEUROLOGIC: Oriented x 3, no acute motor or sensory deficits, no focal weakness. SKIN: No jaundice, no diaphoresis. DIFFERENTIAL DIAGNOSIS: Dysrhythmia, A-fib, a flutter, SVT, V. tach, renal failure, electrolyte imbalance, medication reaction, among others. EMERGENCY DEPARTMENT PROCEDURES: MEDICAL DECISION MAKING: There is no leukocytosis. A mild anemia was seen however, this appears baseline looking back at previous testing. There was a normal platelet count. No coagulopathy. Potassium was somewhat high at 5.8. Creatinine was elevated above baseline at 1.76 consistent with some acute kidney injury. There was no concerning liver enzyme elevation. Patient's TSH was high however, the T4 was normal. ECG shows what appears to be in atrial fibrillation. No ST elevation. Cardiac enzyme testing x 1 was not consistent with acute cardiac injury. Chest x-ray showed cardiomegaly, no CHF or pneumonia. On exam, patient was resting comfortably. He was hypertensive. The patient was given a 500 cc saline bolus. A second 500 cc saline bolus was administered. He received 25 mg of oral metoprolol tartrate. He was given IV hydralazine for his high blood pressure. I spoke with Dr. Krueger of cardiology. Given the persistent bradycardia noted at home, given his recent medication changes, given his history of previous bradycardia, a hospital stay, monitoring and further cardiac workup was felt warranted. A tachybradycardia syndrome was certainly a concern. For now, we are going to hold on giving the large dose of beta-ruiz that he has been taking as this currently may have contributed to the bradycardia. Instead of 200 mg of metoprolol succinate, he received a small 25 mg dose of oral metoprolol tartrate. Hopefully, we can control the high blood pressure with hydralazine. I spoke with the patient and case management, the on-call hospitalist was consulted. Prior/Outside records/notes reviewed: Family practice note from 09/27/2023 discussing his ongoing issues and the plan moving forward. ECG per my interpretation: Indication was bradycardia. The ECG shows what appears to be atrial fibrillation with a rate in the 80s. There is no acute ST elevation, no PVCs. The QTc is 453. Continuous Cardiac Monitoring per my interpretation: An order was placed for continuous cardiac monitoring. The monitor shows a rate of 85 with atrial fibrillation. Imaging/x-ray results per my interpretation: Chest x-ray shows cardiomegaly, no CHF or pneumonia. Chronic Medical/Social conditions affecting care: Chronic anticoagulation and chronic A-fib. Care/Management discussed with: [facility] cardiology-Dr. Krueger. Case management and the on-call hospitalist Level of care consideration(s): After review of the information above and other included data: --I believe the patient requires escalation of care to admission DISPOSITION: Admission Past Med/Surg History Medical History Arthritis of right elbow IPMN (intraductal papillary mucinous neoplasm) Dilatation of thoracic aorta 46 mm by CTA in August 2020 History of cardioversion Prediabetes Mixed hyperlipidemia Primary hypertension Degenerative arthritis of knee, bilateral Dyslipidemia HTN (hypertension) Failed total hip arthroplasty Osteoarthritis Atrial fibrillation Follows with [facility] - on xarelto Surgical History H/O bilateral hip replacements History of left nephrectomy History of colonoscopy History of total hip arthroplasty History of adenoidectomy History of tonsillectomy History of cardiac cath Family History Mother Diabetes Lung cancer Father Heart disease Multiple myeloma Brother Diabetes Heart disease Other No family history of adverse response to anesthesia No significant family history Denies family history of Ovarian cancer Prostate cancer Breast cancer Colorectal cancer Social History Smoking Status: Never smoker Second Hand Exposure: No; Do You Dip or Chew Tobacco: No; Hx Alcohol Use: Yes Alcohol Intake Frequency: Monthly or Less Alcohol Intake Frequency Comment: once a year Hx Substance Use: No Preferred Language: Georgian Communication Ability: Effective Visual Impairment: No Limitations Hearing Ability: Hard of Hearing An Employee 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 Or 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 And Required: No Beliefs That Will Affect Care: None marital status: Current Living Situation: Spouse current occupational status: employed and retired Feels Safe at Home: Yes Dental Care, Regularly: No Seatbelt Use: always Assistive Devices: None Allergies Allergies Allergy/AdvReac Type Severity Reaction Status Date / Time No Known Allergies Allergy Unknown Verified 09/27/23 11:07 Home Meds Home Medications Medication Instructions Recorded Confirmed vitamin B complex 1 cap PO QAM 01/28/22 09/27/23 multivitamin 1 tab PO QAM 04/07/22 10/03/23 omega-3 fatty acids-fish oil 360 1 cap PO QAM 04/07/22 10/03/23 mg-1,200 mg capsule (Fish Oil) selenium 100 mcg tablet 100 mcg PO QAM 04/07/22 10/03/23 ashwagandha extract 1 dose PO .qd 06/13/23 10/03/23 xgmfkel-ntji-xetoi-oreg-capryl 1 dose PO .qd 06/13/23 09/27/23 calcium carbonate (Calcium 500) 500 mg PO .COMPLEX 07/10/23 09/27/23 magnesium 200 mg tablet 400 mg PO QAM 07/10/23 10/03/23 digoxin 250 mcg (0.25 mg) tablet 250 mcg PO QAM 08/01/23 10/03/23 rivaroxaban 20 mg tablet (Xarelto) 20 mg PO QAM 08/22/23 10/03/23 vit A 7,160 unit-vit C 113 mg-vit 2 tab PO BID 08/22/23 09/27/23 A-olgl-stryim-lutein 0.5 mg tablet tamsulosin 0.4 mg capsule 0.4 mg PO 08/24/23 09/27/23 Previous Rx's Medication Instructions Recorded furosemide 20 mg tablet 20 mg PO DAILY PRN weight gain, 08/22/23 edema, SOB #30 tabs pravastatin 10 mg tablet 10 mg PO DAILY #90 tabs 08/24/23 metoprolol succinate 200 mg 200 mg PO DAILY #90 tabs 09/19/23 tablet,extended release 24 hr Results & Data (ED) Vital Signs Vital Signs - 24 hr 10/02/23 19:57 10/02/23 20:56 10/02/23 22:31 Temperature 36.8 C Temperature Source Temporal Artery Scan Pulse Rate 74 71 Pulse Rate [Finger] 76 Pulse Rate from SpO2 Sensor Pulse Rhythm Regular Pulse Rhythm [Finger] Regular Pulse Strength Normal Pulse Strength [Finger] Normal Respiratory Rate 20 16 Respiratory Effort / Characteristics Non-Labored Spontaneous Non-Labored Respiratory Depth Normal Normal Respiratory Pattern Regular Regular Blood Pressure 146/81 H Blood Pressure [Left Arm] 166/106 H Blood Pressure Mean 102 Blood Pressure Mean [Left Arm] 126 Blood Pressure Position Sitting Pulse Oximetry 95 97 Oxygen Delivery Method Room Air Room Air Sepsis Recent Fever Within 48 Hours No Sepsis New/Unexplained Change in Mental Status N/A Sepsis Action Taken by Nursing No Action Required 10/02/23 22:34 10/02/23 22:34 10/02/23 23:00 Temperature Temperature Source Pulse Rate 75 76 Pulse Rate [Finger] Pulse Rate from SpO2 Sensor Pulse Rhythm Pulse Rhythm [Finger] Pulse Strength Pulse Strength [Finger] Respiratory Rate 22 22 Respiratory Effort / Characteristics Respiratory Depth Respiratory Pattern Blood Pressure 170/111 H 170/111 H 164/111 H Blood Pressure [Left Arm] Blood Pressure Mean 136 130 128 Blood Pressure Mean [Left Arm] Blood Pressure Position Pulse Oximetry Oxygen Delivery Method Sepsis Recent Fever Within 48 Hours Sepsis New/Unexplained Change in Mental Status Sepsis Action Taken by Nursing 10/02/23 23:30 10/03/23 00:00 10/03/23 00:30 Temperature Temperature Source Pulse Rate 73 71 72 Pulse Rate [Finger] Pulse Rate from SpO2 Sensor 71 Pulse Rhythm Pulse Rhythm [Finger] Pulse Strength Pulse Strength [Finger] Respiratory Rate 24 25 H 20 Respiratory Effort / Characteristics Respiratory Depth Respiratory Pattern Blood Pressure 169/109 H 168/110 H 180/117 H Blood Pressure [Left Arm] Blood Pressure Mean 129 129 138 Blood Pressure Mean [Left Arm] Blood Pressure Position Pulse Oximetry 97 Oxygen Delivery Method Sepsis Recent Fever Within 48 Hours Sepsis New/Unexplained Change in Mental Status Sepsis Action Taken by Nursing 10/03/23 01:00 10/03/23 01:39 Temperature Temperature Source Pulse Rate 73 99 H Pulse Rate [Finger] Pulse Rate from SpO2 Sensor 75 100 H Pulse Rhythm Pulse Rhythm [Finger] Pulse Strength Pulse Strength [Finger] Respiratory Rate 21 22 Respiratory Effort / Characteristics Respiratory Depth Respiratory Pattern Blood Pressure 164/109 H 175/104 H Blood Pressure [Left Arm] Blood Pressure Mean 127 127 Blood Pressure Mean [Left Arm] Blood Pressure Position Pulse Oximetry 98 98 Oxygen Delivery Method Sepsis Recent Fever Within 48 Hours Sepsis New/Unexplained Change in Mental Status Sepsis Action Taken by Longterm Medications Current Medication List: was personally reviewed by me Laboratory Data Attestation: I reviewed the patient's lab results. 10/02/23 20:19 10/02/23 20:19 Lab Results 10/02/23 Range/Units 20:19 WBC 7.31 (4.8-10.8) K/ul RBC 3.84 L (4.70-6.10) M/uL Hgb 11.1 L (14.0-18.0) g/dl Hct 35.1 L (42.0-52.0) % MCV 91.4 (80.0-100.0) fL MCH 28.9 (25.0-34.0) pg MCHC 31.6 L (32.0-36.0) g/dL RDW Std Deviation 45.8 (36.4-46.3) fL RDW Coeff of Dennis 13.7 (11.5-14.5) % Plt Count 190 (130-400) K/uL MPV 9.4 (9.4-12.4) fL Immature Gran % (Auto) 0.5 % Neut % (Auto) 85.1 % Lymph % (Auto) 8.9 % [facility] % (Auto) 4.9 % Eos % (Auto) 0.5 % Baso % (Auto) 0.1 % Neut # (Auto) 6.21 (1.40-6.50) K/uL Lymph # (Auto) 0.65 L (1.20-3.40) K/uL [facility] # (Auto) 0.36 (0.11-0.59) K/uL Eos # (Auto) 0.04 (0.00-0.50) K/uL Baso # (Auto) 0.01 (0.00-0.20) K/uL Immature Gran # (Auto) 0.04 (0.01-0.20) K/uL PT 11.2 (9.0-12.0) Seconds INR 1.0 (0.9-1.1) APTT 29 (21-31) Seconds PTT Ratio 1.0 Sodium 137 (136-145) mmol/L Potassium 5.8 H (3.5-5.1) mmol/L Chloride 107 (98-107) mmol/L Carbon Dioxide 23 (21-32) mmol/L Anion Gap 7 (3-11) BUN 49 H (6-23) mg/dl Creatinine 1.76 H (0.6-1.4) mg/dl Est Cr Clr Drug Dosing 59.8 ml/min Est GFR ( Amer) 44.4 ml/min Est GFR (Non-Af Amer) 38.3 ml/min BUN/Creatinine Ratio 27.8 H (10-20) Glucose 113 H (70-99(Fasting)) mg/dl Calcium 9.3 (8.6-10.3) mg/dl Magnesium 2.0 (1.7-2.4) mg/dl Total Bilirubin 0.6 (0.2-1.0) mg/dl AST 13 (13-39) U/L ALT 11 (7-52) U/L Alkaline Phosphatase 59 (34-104) U/L Troponin I High Sens 7.3 (0-20) pg/ml Total Protein 7.7 (6.0-8.3) gm/dl Albumin 4.9 (3.4-5.0) gm/dl Globulin 2.8 (2.5-4.0) gm/dl Albumin/Globulin Ratio 1.8 (0.9-2) TSH 5.228 H (0.300-4.500) uIu/ml Free T4 0.82 (0.61-1.60) ng/dl Administered Medications Discontinued Medications Calcium Gluconate (Calcium Gluconate 1000 Mg/60 Ml Nss) Confirm Administered Dose 1,000 mg IV .STK-MED ONE Stop: 10/03/23 00:24 Last Admin: 10/03/23 01:07 Dose: Not Given Documented By: LINCOLN Dextrose (Dextrose 50% 50 Ml Syringe) Confirm Administered Dose 50 ml IV .[facility] ONE Stop: 10/03/23 00:24 Last Admin: 10/03/23 01:07 Dose: Not Given Documented By: LINCOLN Dextrose (Dextrose 50% 50 Ml Syringe) 50 ml IV NOW STA Stop: 10/03/23 00:16 Last Admin: 10/03/23 00:59 Dose: 50 ml Documented By: LINCOLN Hydralazine HCl (Hydralazine Hcl 20 Mg/Ml Vial) Confirm Administered Dose 20 mg .ROUTE .STK-MED ONE Stop: 10/03/23 00:07 Last Admin: 10/03/23 01:07 Dose: Not Given Documented By: LINCOLN Hydralazine HCl (Hydralazine Hcl 20 Mg/Ml Vial) 10 mg IV NOW STA Stop: 10/02/23 23:15 Last Admin: 10/03/23 00:40 Dose: 10 mg Documented By: LINCOLN Sodium Chloride (Nss) 500 mls @ 999 mls/hr IV .Q31M STA Stop: 10/02/23 20:32 Last Infusion: 10/02/23 22:08 Dose: Infused Documented By: Admin: 10/02/23 20:18 Dose: 999 mls/hr Documented By: JONATHAN Calcium Gluconate () 1,000 mg in 60 mls @ 240 mls/hr IV NOW STA Stop: 10/03/23 00:29 Last Infusion: 10/03/23 01:16 Dose: Infused Documented By: Admin: 10/03/23 00:59 Dose: 240 mls/hr Documented By: LINCOLN Insulin Human Regular 10 units (/ Syringe) 10 mls @ 3 mls/sec IV ONE STA Stop: 10/03/23 00:16 Last Admin: 10/03/23 00:59 Dose: 3 mls/sec Documented By: LINCOLN Co-signed By: GELY Sodium Chloride (Nss) 500 mls @ 999 mls/hr IV .Q31M ONE Stop: 10/03/23 00:47 Last Admin: 10/03/23 01:21 Dose: 999 mls/hr Documented By: LINCOLN Insulin Aspart (Insulin Aspart Per Unit Charge) Confirm Administered Dose 10,000 units .ROUTE .STK-MED ONE Stop: 10/03/23 00:25 Last Admin: 10/03/23 01:07 Dose: Not Given Documented By: LINCOLN Co-signed By: MEREDITH Insulin Human Regular (Novolin-R Insulin Per Unit Charge) Confirm Administered Dose 1 units .ROUTE .STK-MED ONE Stop: 10/03/23 00:39 Last Admin: 10/03/23 01:07 Dose: Not Given Documented By: LINCOLN Metoprolol Tartrate (Metoprolol Tartrate 25 Mg Tab) 25 mg PO NOW STA Stop: 10/02/23 23:15 Last Admin: 10/03/23 01:00 Dose: Not Given Documented By: LINCOLN Discharge Plan Visit Data Chief Complaint: Bradycardia Stated Complaint: 32BPM, BRADYCARDIA, HEAD RUSHES ED Provider: Anastacio Jo Discharge Problem: Bradycardia, Atrial fibrillation, Hypertension, Acute hyperkalemia, MELLY (acute kidney injury) Patient Disposition: Admitted As Inpatient Condition: Fair Prescriptions Prescriptions: No Action ashwagandha extract 1 dose PO .qd tiyjdoe-ylwt-hwwoh-oreg-capryl 1 dose PO .qd pravastatin 10 mg tablet 10 mg PO DAILY Qty: 90 3RF tamsulosin 0.4 mg capsule 0.4 mg PO metoprolol succinate 200 mg tablet extended release 24 hr 200 mg PO DAILY Qty: 90 3RF A-C-E-zinc ox-cupric ox-lutein 7,160 unit- 113 mg-0.5 mg tablet 2 tab PO BID Xarelto 20 mg tablet 20 mg PO QAM Patient Comments: Patient only taking QOD furosemide 20 mg tablet 20 mg PO DAILY PRN (Reason: weight gain, edema, SOB) Qty: 30 3RF vitamin B complex Capsule 1 cap PO QAM multivitamin Tablet 1 tab PO QAM selenium 100 mcg tablet 100 mcg PO QAM omega-3 fatty acids-fish oil [Fish Oil] 360-1,200 mg capsule 1 cap PO QAM magnesium 200 mg tablet 400 mg PO QAM calcium carbonate [Calcium 500] 500 mg calcium (1,250 mg) tablet,chewable 500 mg PO .COMPLEX Rx Instructions: 500 mg orally 2X WK; digoxin 250 mcg (0.25 mg) tablet 250 mcg PO QAM Discharge Problem: Atrial fibrillation Qualifiers: Atrial fibrillation type: unspecified Qualified Code(s): I48.91 - Unspecified atrial fibrillation Hypertension Qualifiers: Hypertension type: unspecified Qualified Code(s): I10 - Essential (primary) hypertension
[2023-10-03] MEDS: hydrALAZINE HCL 20 MG/ML VIAL IV STA (00:40)
--- NOTE | 2023-10-03 00:42 | History & Physical Report ---
Date of Service October 03, 2023 Assessment & Plan (1) Bradycardia: Plan: Patient with symptomatic bradycardia prior to arrival. Now improved, HR has been above 50bpm Likely secondary to medication effects. Uncertain about patient's adherence to his home medication schedule. Possibly MELLY with hyperkalemia contributing as well -Admit to PCU, monitor HR -K correction - Ca gluconate + IVF + Insulin/D50, repeat labs -Hold Metoprolol and Digoxin for now -Check Digoxin level -Cardiology consultation appreciated (2) Hypertension: Plan: Blood pressure readings earlier today were low for him with symptoms present -Holding Metprolol and Digoxin -Monitor -Would consider resuming Metoprolol at a lower dose (3) Atrial fibrillation: Plan: Chronic -Holding Metoprolol -Continue Rivaroxaban (4) Acute kidney injury superimposed on CKD: Plan: Elevation of BUN and Cr from baseline -Continue IVF -Hold nephrotoxic agents -Renal dosing where needed -Repeat labs (5) Acute hyperkalemia: Plan: Elevation of K=5.8 in setting of MELLY on CKD. Uncertain if this is contributing to current symptoms -Treatment with insulin and D50 -IVF (6) Primary hypertension: Plan: Holding metoprolol for now -Monitor - may need to resume today at lower dose (7) Mixed hyperlipidemia: Plan: Chronic. Stable -Continue Pravachol History of Present Illness Chief Complaint: bradycardia Primary Care Provider: Anastacia Hdz MD Vicotrino Paris is a 72yo male with history of pre-DM, HTN, HLP, AF and solitary kidney presenting with symptomatic bradycardia. Patient was in his usual state of health until this afternoon around 16:00 when he developed a dizzy sensation which he described as "a head jett". He checked his heart rate and blood pressure at that time and he was bradycardic with HR in the 30's. Blood pressure also low. Patient monitored his vital signs for the next several hours - HR ranging 30-48bpm and blood pressure ranging 105-126 / 50-69. Patient recently had his Metoprolol increased from 50mg daily --> 100mg --> 200mg po daily. Patient reports that he has been eating and drinking well overall. Today he drank two [employer] iced teas He denies fever, chills, cough, CP, SOB, abdominal pain, nausea, vomiting, diarrhea, syncope He had symptomatic bradycardia in the past following a hernia surgery - thought to be secondary to digoxin toxicity In the ER patient is afebrile. BP and HR have improved after administration of 500mL nss ER Course: Hydralazine 10mg IV NSS x 500mg IV Calcium gluconate 1gm Insulin 10u IV + Dextrose 50ML IV Allergies Allergy/AdvReac Type Severity Reaction Status Date / Time No Known Allergies Allergy Unknown Verified 09/27/23 11:07 Home Medications Medication Instructions Recorded Confirmed Type vitamin B complex 1 cap PO QAM 01/28/22 09/27/23 History multivitamin 1 tab PO QAM 04/07/22 10/03/23 History omega-3 fatty acids-fish oil 360 1 cap PO QAM 04/07/22 10/03/23 History mg-1,200 mg capsule (Fish Oil) selenium 100 mcg tablet 100 mcg PO QAM 04/07/22 10/03/23 History ashwagandha extract 1 dose PO .qd 06/13/23 10/03/23 History zpvmgwr-dgla-qhifs-oreg-capryl 1 dose PO .qd 06/13/23 09/27/23 History calcium carbonate (Calcium 500) 500 mg PO .COMPLEX 07/10/23 09/27/23 History magnesium 200 mg tablet 400 mg PO QAM 07/10/23 10/03/23 History digoxin 250 mcg (0.25 mg) tablet 250 mcg PO QAM 08/01/23 10/03/23 History furosemide 20 mg tablet 20 mg PO DAILY PRN weight gain, 08/22/23 10/03/23 Rx edema, SOB #30 tabs rivaroxaban 20 mg tablet (Xarelto) 20 mg PO QAM 08/22/23 10/03/23 History vit A 7,160 unit-vit C 113 mg-vit 2 tab PO BID 08/22/23 09/27/23 History V-qpck-mqtive-lutein 0.5 mg tablet pravastatin 10 mg tablet 10 mg PO DAILY #90 tabs 08/24/23 10/03/23 Rx tamsulosin 0.4 mg capsule 0.4 mg PO 08/24/23 09/27/23 History metoprolol succinate 200 mg 200 mg PO DAILY #90 tabs 09/19/23 10/03/23 Rx tablet,extended release 24 hr Past Med/Surg History Medical History Arthritis of right elbow IPMN (intraductal papillary mucinous neoplasm) Dilatation of thoracic aorta 46 mm by CTA in August 2020 History of cardioversion Prediabetes Mixed hyperlipidemia Primary hypertension Degenerative arthritis of knee, bilateral Dyslipidemia HTN (hypertension) Failed total hip arthroplasty Osteoarthritis Atrial fibrillation Follows with [facility] - on xarelto Surgical History H/O bilateral hip replacements x3, right one was done twice History of left nephrectomy History of colonoscopy History of total hip arthroplasty BILATERAL History of adenoidectomy History of tonsillectomy History of cardiac cath PART OF PRE-OP W/U BEFORE 1ST DEMETRIO, NO INTERVENTION Family History Mother Diabetes Lung cancer Father Heart disease Multiple myeloma Brother Diabetes Heart disease Other No family history of adverse response to anesthesia No significant family history Denies family history of Ovarian cancer Prostate cancer Breast cancer Colorectal cancer Social History Smoking Status: Never smoker Second Hand Exposure: No; Do You Dip or Chew Tobacco: No; Hx Alcohol Use: Yes Alcohol Intake Frequency: Monthly or Less Alcohol Intake Frequency Comment: once a year Hx Substance Use: No Preferred Language: Georgian Communication Ability: Effective Visual Impairment: No Limitations Hearing Ability: Hard of Hearing Wood Bucker Required: No Beliefs That Will Affect Care: None marital status: Current Living Situation: Spouse current occupational status: employed and retired Feels Safe at Home: Yes Dental Care, Regularly: No Seatbelt Use: always Assistive Devices: None Review of Systems Review of Systems: All systems reviewed & are unremarkable except as noted in HPI & below Physical Exam Physical Exam: General: patient resting comfortably, NAD, non-toxic in appearance, AA&O x 4 Skin: warm, dry, intact, no rashes or lesions HEENT: NC/AT, PERRL, EOMI, anicteric sclera, conjunctiva without injection, external ear normal to inspection and nontender, nares patent, moist mucus membranes, dentition intact, no oropharyngeal lesions, neck supple, trachea midline, no LAD, no thyromegaly, no JVD Heart: +S1/S2, regular, no m/r/g Lungs: equal air entry bilaterally, no rales/rhonchi/wheezes Abd: +BS, soft, NT/ND, no masses/organomegaly/ascites Ext: warm, 2+ pulses in UE/LE bilaterally, no clubbing/cyanosis, chronic venous stasis changes and skin darkening on bilateral LE Neuro: nonfocal, patient AA&O x 4, speech intact, no facial droop, moving all extremities on command with equal strength 5/5 Results & Data Results & Data Vital Signs (Past 12 Hours) Vital Signs Temp Pulse Pulse Resp BP BP Pulse Ox 10/03/23 00:00 71 25 H 168/110 H 97 10/02/23 23:30 73 24 169/109 H 10/02/23 23:00 76 22 164/111 H 10/02/23 22:34 75 22 170/111 H 10/02/23 22:34 170/111 H 10/02/23 22:31 71 10/02/23 20:56 76 16 166/106 H 97 10/02/23 19:57 36.8 C 74 20 146/81 H 95 O2 Del Method 10/03/23 00:00 10/02/23 23:30 10/02/23 23:00 10/02/23 22:34 10/02/23 22:34 10/02/23 22:31 10/02/23 20:56 Room Air 10/02/23 19:57 Room Air Laboratory Results Laboratory Results WBC 7.31 K/ul (4.8-10.8) 10/02/23 20:19 RBC 3.84 M/uL (4.70-6.10) L 10/02/23 20:19 Hgb 11.1 g/dl (14.0-18.0) L 10/02/23 20:19 Hct 35.1 % (42.0-52.0) L 10/02/23 20:19 MCV 91.4 fL (80.0-100.0) 10/02/23 20:19 MCH 28.9 pg (25.0-34.0) 10/02/23 20:19 MCHC 31.6 g/dL (32.0-36.0) L 10/02/23 20:19 RDW Std Deviation 45.8 fL (36.4-46.3) 10/02/23 20:19 RDW Coeff of Dennis 13.7 % (11.5-14.5) 10/02/23 20:19 Plt Count 190 K/uL (130-400) 10/02/23 20:19 MPV 9.4 fL (9.4-12.4) 10/02/23 20:19 Immature Gran % (Auto) 0.5 % 10/02/23 20:19 Neut % (Auto) 85.1 % 10/02/23 20:19 Lymph % (Auto) 8.9 % 10/02/23 20:19 [place] % (Auto) 4.9 % 10/02/23 20:19 Eos % (Auto) 0.5 % 10/02/23 20:19 Baso % (Auto) 0.1 % 10/02/23 20:19 Neut # (Auto) 6.21 K/uL (1.40-6.50) 10/02/23 20:19 Lymph # (Auto) 0.65 K/uL (1.20-3.40) L 10/02/23 20:19 [place] # (Auto) 0.36 K/uL (0.11-0.59) 10/02/23 20:19 Eos # (Auto) 0.04 K/uL (0.00-0.50) 10/02/23 20:19 Baso # (Auto) 0.01 K/uL (0.00-0.20) 10/02/23 20:19 Immature Gran # (Auto) 0.04 K/uL (0.01-0.20) 10/02/23 20:19 PT 11.2 Seconds (9.0-12.0) 10/02/23 20:19 INR 1.0 (0.9-1.1) 10/02/23 20:19 APTT 29 Seconds (21-31) 10/02/23 20:19 PTT Ratio 1.0 10/02/23 20:19 Sodium 138 mmol/L (136-145) 10/03/23 03:22 Potassium 5.2 mmol/L (3.5-5.1) H 10/03/23 03:22 Chloride 108 mmol/L (98-107) H 10/03/23 03:22 Carbon Dioxide 23 mmol/L (21-32) 10/03/23 03:22 Anion Gap 7 (3-11) 10/03/23 03:22 BUN 50 mg/dl (6-23) H 10/03/23 03:22 Creatinine 1.44 mg/dl (0.6-1.4) H D 10/03/23 03:22 Est Cr Clr Drug Dosing 73.1 ml/min 10/03/23 03:22 Est GFR ( Amer) 56.6 ml/min 10/03/23 03:22 Est GFR (Non-Af Amer) 48.9 ml/min 10/03/23 03:22 BUN/Creatinine Ratio 34.7 (10-20) H 10/03/23 03:22 Glucose 110 mg/dl (70-99(Fasting)) H 10/03/23 03:22 Calcium 9.2 mg/dl (8.6-10.3) 10/03/23 03:22 Phosphorus 4.4 mg/dl (2.5-4.9) 10/03/23 03:22 Magnesium 2.0 mg/dl (1.7-2.4) 10/02/23 20:19 Total Bilirubin 0.6 mg/dl (0.2-1.0) 10/02/23 20:19 AST 13 U/L (13-39) 10/02/23 20:19 ALT 11 U/L (7-52) 10/02/23 20:19 Alkaline Phosphatase 59 U/L (34-104) 10/02/23 20:19 Troponin I High Sens 7.3 pg/ml (0-20) 10/02/23 20:19 Total Protein 7.7 gm/dl (6.0-8.3) 10/02/23 20:19 Albumin 4.9 gm/dl (3.4-5.0) 10/02/23 20:19 Globulin 2.8 gm/dl (2.5-4.0) 10/02/23 20:19 Albumin/Globulin Ratio 1.8 (0.9-2) 10/02/23 20:19 TSH 5.228 uIu/ml (0.300-4.500) H 10/02/23 20:19 Free T4 0.82 ng/dl (0.61-1.60) 04/08/24 20:19 Digoxin < 0.3 ng/ml (0.8-2.0) L 10/03/23 03:22 ECG Additional Comments: EKG with accelerated junctional with premature narrow complexes, rate of 81bpm, no acute ischemic changes. T-waves appear large and somewhat peaked PG Care Time/CCT Total # of Minutes Spent Total Time Spent with Patient: Total time spent is greater than 50% in coordination of care (as documented) at patient's floor/unit and/or counseling patient: Coding Level of Care Code 91168 INT INP/OBS CARE 3/75MIN Diagnoses Bradycardia R00.1 Hypertension I10 Hypertension type: unspecified Atrial fibrillation I48.91 Atrial fibrillation type: unspecified Acute kidney injury superimposed on CKD N17.9; N18.9 Acute hyperkalemia E87.5 Primary hypertension I10 Mixed hyperlipidemia E78.2 (2) Hypertension Hypertension type: unspecified Qualified Code(s): I10 - Essential (primary) hypertension (3) Atrial fibrillation Atrial fibrillation type: unspecified Qualified Code(s): I48.91 - Unspecified atrial fibrillation
[2023-10-03] MEDS: INSULIN HUMAN REGULAR PER UNIT 10 UNITS in SYRINGE 9.9 ML IV STA (00:59)
[2023-10-03] MEDS: CALCIUM GLUCONATE 1,000 MG/60 ML BAG IV STA (00:59)
[2023-10-03] MEDS: DEXTROSE 50% 50 ML SYRINGE IV STA (00:59)
[2023-10-03] MEDS: METOPROLOL TARTRATE 25 MG TAB PO STA ×2 (01:00→18:15)
[2023-10-03] MEDS: CALCIUM GLUCONATE 1000 MG/60 ML NSS IV ONE (01:07)
[2023-10-03] MEDS: NovoLIN-R INSULIN PER UNIT CHARGE ONE (01:07)
[2023-10-03] MEDS: INSULIN ASPART PER UNIT CHARGE ONE (01:07)
[2023-10-03] MEDS: hydrALAZINE HCL 20 MG/ML VIAL ONE (01:07)
[2023-10-03] MEDS: DEXTROSE 50% 50 ML SYRINGE IV ONE (01:07)
[2023-10-03] MEDS: SODIUM CHLORIDE 0.9% 500 ML IV ONE (01:21)
[2023-10-03] MEDS ORDERED: ACETAMINOPHEN 325 MG TAB PO PRN (02:12)
[2023-10-03 04:20] LABS: BUN Creatinine Ratio 34.7 (10-20); Calcium 9.2 mg/dl (8.6-10.3); Creatinine Clr Calc Pharmacy 73.1 ml/min; Est GFR (African American) 56.6 ml/min; Est GFR (Non-African American) 48.9 ml/min; Phosphorus 4.4 mg/dl (2.5-4.9); Potassium 5.2 mmol/L (3.5-5.1)
--- NOTE | 2023-10-03 08:14 | XRay Report ---
XR chest 1V portable HISTORY: Dysrhythmia COMPARISON: Chest 08/26/2020. FINDINGS: No pneumothorax. No pleural effusions. No focal lung consolidations to suggest a pneumonia. The heart remains enlarged. No acute fractures. IMPRESSION: No significant change compared to the prior study. No acute process. Stable cardiomegaly. ACT 112: Negative or not required by law. Electronically signed by: Joaquín Odom M.D. 10/03/2023 8:12 AM
[2023-10-03] MEDS: PRAVASTATIN SOD 10 MG TAB PO SCH (10:28)
[2023-10-03] MEDS: RIVAROXABAN 20 MG TAB PO SCH (15:41)
--- NOTE | 2023-10-03 18:05 | Cardiology Consultation ---
Date of Consultation October 03, 2023 Assessment & Plan (1) Permanent atrial fibrillation: (2) Bradycardia: (3) Nonischemic cardiomyopathy: (4) Mitral regurgitation: (5) Tricuspid regurgitation: (6) HFrEF (heart failure with reduced ejection fraction): (7) Thoracic aortic aneurysm: (8) Acute hyperkalemia: (9) Hypertension: (10) Tachy-kofi syndrome: Plan ASSESSMENT/PLAN: 1. Atrial fibrillation: Permanent. Asymptomatic. At self-reported bradycardia in the 30s with potential symptoms. Has documented bradycardia while hospitalized at [facility] while on digoxin and low-dose metoprolol. Prior to presentation for this hospital stay, he was on high-dose metoprolol while continuing with digoxin. Interestingly, did not take his medications the day of his bradycardia and therefore has been off medications for approximately 30 hours and digoxin level was undetectable. Now having issues with tachycardia. Start metoprolol tartrate 25 mg twice daily and can titrate upward as necessary. Consideration for pacemaker. Continue anticoagulation for stroke risk reduction. Would not resume digoxin. 2. Tachybradycardia syndrome: Concerning for tachybradycardia syndrome, especially with [facility] ECG demonstrating significant bradycardia while on digoxin and low-dose beta-ruiz. Self-reported bradycardia prompting his presentation and digoxin level was undetectable. Cautiously initiating beta-ruiz as above. Discussed with electrophysiology to consider pacemaker. Electrophysiology to further evaluate. 3. Nonischemic cardiomyopathy: Longstanding. Had cardiac catheterization in 2016. Avoiding mineralocorticoid receptor antagonist and ARNI/ACEI therapies du e to ongoing issues with hyperkalemia. Repeat echo. 4. Heart failure with midrange EF: He does not appear to be significantly hypervolemic. Has Lasix available as needed at home. Medical therapy is challenging given recent issues with hyperkalemia, and therefore would avoid ARNI/HARRY inhibitor and mineralocorticoid receptor antagonist. Consider SGLT2 inhibitor. 5. Dilated thoracic aorta: Recommend annual surveillance. Avoid strenuous lifting for which the Valsalva maneuver is required. Continue beta-ruiz if tolerated. Blood pressure control. 6. Hypertension: Blood pressure mostly elevated. Resuming low-dose beta- ruiz this evening. 7. Mitral and tricuspid regurgitation: Repeating echo for surveillance purposes. 8. Disposition: Cardiology will continue to follow. Electrophysiology to evaluate as well. Continue to follow in the heart failure program. Patient care communicated with Dr. Flores of the primary hospitalist service. Highly complex medical issues. Thank you for allowing me to participate in the care of your patient. Please call for any other questions or concerns. Sincerely, Dave Baker M.D. History of Present Illness Reason for Consultation: bradycardia Requesting Physician: Dr. Tai Attending Physician: Rivas Flores History of Present Illness Mr. 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 He is followed by Yajaira Spangler in the heart failure program. He was diagnosed with atrial fibrillation in 1986 and was placed on digoxin and warfarin. Over time, carvedilol was introduced in 2022 but he did not tolerate it well. He continued with digoxin and metoprolol succinate was initiated initially at 50 mg daily. Following a hernia surgery in May 2023, he developed bradycardia with self-reported heart rates down to 18 bpm while hospitalized at [facility]. He was seen by cardiology and digoxin was discontinued. There is an ECG available for review demonstrating A-fib with heart rates in the low 30s. Over time, heart rate improved. He did not feel well off of digoxin however and therefore self resume the medication. He had been on lisinopril which was discontinued in favor of Entresto but Entresto was later discontinued in July 2023 when he had an outpatient potassium level of 6.1. He has had the following studies/procedures: 1. Dobutamine stress echo 07/28/2015 [facility]: Rhythm was atrial fibrillation with PVCs. Downsloping [address] depressions in inferior leads with dobutamine infusion. Resting echo with dilated LV with mild hypokinesis of anteroseptal segments. LVEF 40%. Biatrial dilatation. Mild MR/TR. 2. Cardiac cath 08/21/2015 [facility]: Normal coronary arteries. 3. Chest CTA 08/26/2020: Aneurysmal dilatation of the ascending thoracic aorta which measures 46 mm at the level the main pulmonary artery 4. Echo 01/19/2022 [facility]: Moderately dilated LV with moderately reduced systolic function. EF 35-40%. Moderate global hypokinesis of the LV. Severe biatrial enlargement. Moderate MR/TR. Compared with study from 07/28/15, Regurgitant lesions now moderate in degree. 5. Chest CTA 07/11/22: Cardiomegaly with unchanged fusiform dilation of the ascending thoracic aorta measuring up to 4.6 cm. 6. Echo 06/06/2023 [facility]: Severely enlarged LV cavity size with mildly reduced systolic function. EF 45-49%. Septal motion consistent with interventricular conduction delay. Mild LVH. Severe biatrial enlargement. Severely dilated RV with mildly reduced RV systolic function. Mild MR. Moderate TR. He was last seen in the heart failure program on 09/19/2023 at which point metoprolol succinate was increased from 100 mg daily to 200 mg daily. He continued taking digoxin 250 mcg daily. On 10/02/2023, he felt a sensation from his abdomen to his head described as a "head jett." His whole body felt similar to when he had an arrhythmia issue in the past. He denies syncope, near syncope, or visual complaints. He checked his blood pressure and it was normal but his heart rate was consistently in the 30s for 2 or 3 hours. He was directed to the ER by his PCP office. He reports receiving normal saline in the ER and felt much better. Digoxin and metoprolol succinate were discontinued however his initial ECG did not demonstrate bradycardia but rather A-fib in the 80s. He admits that he is less active over the past year due to nephrectomy and then hernia surgery. He did recently walk more than a mile at a time while in [place] and tolerated it well. He has not had any symptoms since he has been on telemetry. He denies chest pain, shortness of breath, edema, or bleeding such as melena, hematochezia, or hematuria. He has Lasix available when needed and estimates that he took it once or twice in the past month. He states that he can make his heart rate elevated. He moved around in bed for only a few seconds and his heart rate increased to 160s and remained significantly elevated in the 160s for a few minutes. He remained asymptomatic. Review of systems: As above. Review of systems otherwise negative/unremarkable. Family history: Father and brother had arrhythmia. Social history: He denies smoking, alcohol, or drug abuse. He is (Adrienne). 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 He was unaccompanied today. Allergies Allergy/AdvReac Type Severity Reaction Status Date / Time No Known Allergies Allergy Unknown Verified 09/27/23 11:07 Home Medications Medication Instructions Recorded Confirmed Type vitamin B complex 1 cap PO QAM 01/28/22 09/27/23 History multivitamin 1 tab PO QAM 04/07/22 10/03/23 History omega-3 fatty acids-fish oil 360 1 cap PO QAM 04/07/22 10/03/23 History mg-1,200 mg capsule (Fish Oil) selenium 100 mcg tablet 100 mcg PO QAM 04/07/22 10/03/23 History ashwagandha extract 1 dose PO .qd 06/13/23 10/03/23 History zxktwzr-pqhp-zmwkj-oreg-capryl 1 dose PO .qd 06/13/23 09/27/23 History calcium carbonate (Calcium 500) 500 mg PO .COMPLEX 07/10/23 09/27/23 History magnesium 200 mg tablet 400 mg PO QAM 07/10/23 10/03/23 History digoxin 250 mcg (0.25 mg) tablet 250 mcg PO QAM 08/01/23 10/03/23 History furosemide 20 mg tablet 20 mg PO DAILY PRN weight gain, 08/22/23 10/03/23 Rx edema, SOB #30 tabs rivaroxaban 20 mg tablet (Xarelto) 20 mg PO QAM 08/22/23 10/03/23 History vit A 7,160 unit-vit C 113 mg-vit 2 tab PO BID 08/22/23 09/27/23 History N-qpdq-pzfxgp-lutein 0.5 mg tablet pravastatin 10 mg tablet 10 mg PO DAILY #90 tabs 08/24/23 10/03/23 Rx tamsulosin 0.4 mg capsule 0.4 mg PO 08/24/23 09/27/23 History metoprolol succinate 200 mg 200 mg PO DAILY #90 tabs 09/19/23 10/03/23 Rx tablet,extended release 24 hr Patient History Medical History Acute kidney injury superimposed on CKD Acute hyperkalemia Renal oncocytoma of left kidney S/P radical nephrectomy left kidney 08/2022 Left renal mass Tricuspid regurgitation Mitral regurgitation HFrEF (heart failure with reduced ejection fraction) Thoracic aortic aneurysm Arthritis of right elbow IPMN (intraductal papillary mucinous neoplasm) Dilatation of thoracic aorta 46 mm by CTA in August 2020 History of cardioversion Prediabetes Mixed hyperlipidemia Primary hypertension Degenerative arthritis of knee, bilateral Dyslipidemia HTN (hypertension) Failed total hip arthroplasty Osteoarthritis Atrial fibrillation Follows with [facility] - on xarelto Surgical History H/O bilateral hip replacements x3, right one was done twice History of left nephrectomy History of colonoscopy History of total hip arthroplasty BILATERAL History of adenoidectomy History of tonsillectomy History of cardiac cath PART OF PRE-OP W/U BEFORE 1ST DEMETRIO, NO INTERVENTION Family History Mother Diabetes Lung cancer Father Heart disease Multiple myeloma Brother Diabetes Heart disease Other No family history of adverse response to anesthesia No significant family history Denies family history of Ovarian cancer Prostate cancer Breast cancer Colorectal cancer Social History Smoking Status: Never smoker Second Hand Exposure: No; Do You Dip or Chew Tobacco: No; Hx Alcohol Use: Yes Alcohol type: beer and hard liquor Alcohol Intake Frequency: Monthly or Less Alcohol Intake Frequency Comment: once a year Hx Substance Use: No Preferred Language: Cuban Communication Ability: Effective Visual Impairment: No Limitations Hearing Ability: Hard of Hearing Collar Cutter Required: No Beliefs That Will Affect Care: None marital status: Current Living Situation: Spouse current occupational status: employed and retired Feels Safe at Home: Yes Dental Care, Regularly: No Seatbelt Use: always Assistive Devices: None Physical Exam Physical Exam: Gen.: No acute distress. Alert and oriented. HEENT: Anicteric sclera. Neck: Thick neck. Cardiac: No ventricular heave. Irregularly irregular. Normal S1-S2. No murmurs, rubs, or gallops. Pulmonary: Clear to auscultation bilaterally without wheezes, rales, or rhonchi. Abdomen: Soft, nontender, nondistended, with normoactive bowel sounds. No bruits noted. Extremities: 2+ radial pulses bilaterally. 2+ posterior tibialis pulses bilaterally. Trace bilateral lower extremity edema. Venous stasis changes noted of lower extremities. No cyanosis. Psychiatric: Affect appears appropriate. Results & Data Vital Signs (Past 12 Hours) Vital Signs Temp Pulse Pulse Pulse Resp BP BP 10/03/23 15:44 88 10/03/23 15:42 36.6 C 10/03/23 15:40 155/107 H 10/03/23 15:40 88 24 10/03/23 14:00 73 20 10/03/23 12:00 81 20 10/03/23 11:00 83 18 10/03/23 10:33 169/113 H 10/03/23 10:32 175/120 H 10/03/23 10:32 88 23 10/03/23 10:31 83 22 10/03/23 09:32 36.5 C 104 H 21 160/114 H 10/03/23 08:12 80 18 172/94 H 10/03/23 08:12 10/03/23 07:23 77 Pulse Ox Pulse Ox O2 Del Method O2 Del Method 10/03/23 15:44 10/03/23 15:42 10/03/23 15:40 10/03/23 15:40 97 10/03/23 14:00 10/03/23 12:00 10/03/23 11:00 10/03/23 10:33 10/03/23 10:32 10/03/23 10:32 97 Room Air 10/03/23 10:31 10/03/23 09:32 97 Room Air 10/03/23 08:12 98 Room Air 10/03/23 08:12 98 Room Air 10/03/23 07:23 Intake & Output 10/01/23 10/02/23 10/03/23 10/04/23 06:59 06:59 06:59 06:59 Intake Total 1060 / 1060 1200 / 1200 Output Total 1651 / 1651 Balance 1060 / 1060 -451 / -451 Weight 332 lb 10.841 oz 329 lb 9.457 oz Laboratory Results Laboratory Results - last 24 hr 10/02/23 10/03/23 10/03/23 20:19 03:22 11:00 WBC 7.31 RBC 3.84 L Hgb 11.1 L Hct 35.1 L MCV 91.4 MCH 28.9 MCHC 31.6 L RDW Std Deviation 45.8 RDW Coeff of Dennis 13.7 Plt Count 190 MPV 9.4 Immature Gran % (Auto) 0.5 Neut % (Auto) 85.1 Lymph % (Auto) 8.9 Dawson % (Auto) 4.9 Eos % (Auto) 0.5 Baso % (Auto) 0.1 Neut # (Auto) 6.21 Lymph # (Auto) 0.65 L Dawson # (Auto) 0.36 Eos # (Auto) 0.04 Baso # (Auto) 0.01 Immature Gran # (Auto) 0.04 PT 11.2 INR 1.0 APTT 29 PTT Ratio 1.0 Sodium 137 138 Potassium 5.8 H 5.2 H Chloride 107 108 H Carbon Dioxide 23 23 Anion Gap 7 7 BUN 49 H 50 H Creatinine 1.76 H 1.44 H D Est Cr Clr Drug Dosing 59.8 73.1 Est GFR ( Amer) 44.4 56.6 Est GFR (Non-Af Amer) 38.3 48.9 BUN/Creatinine Ratio 27.8 H 34.7 H Glucose 113 H 110 H Calcium 9.3 9.2 Phosphorus 4.4 Magnesium 2.0 Total Bilirubin 0.6 AST 13 ALT 11 Alkaline Phosphatase 59 Troponin I High Sens 7.3 Total Protein 7.7 Albumin 4.9 Globulin 2.8 Albumin/Globulin Ratio 1.8 TSH 5.228 H Free T4 0.82 Nasal Screen MRSA (PCR) Negative Digoxin < 0.3 L Diagnostic Findings [facility] cardiology note from 06/05/[address] [facility] ECG from 06/05/2023 personally reviewed: Atrial fibrillation with slow ventricular response at 38 bpm. Heart failure program visits reviewed. History and physical report reviewed. ECGs personally reviewed: ECG 10/02/2023 at 2014: Atrial fibrillation 81 bpm. ECG 10/02/2023 232: Atrial fibrillation 71 bpm. Telemetry personally reviewed: Atrial fibrillation. Heart rate generally reasonably controlled but with minimal movement in the bed, heart rate increased to 160 bpm and remains such for couple of minutes. Echo reports reviewed as noted above in HPI. Labs reviewed from 10/03/2023 and 10/02/2023 and notable for undetectable digoxin level, mild anemia, slightly elevated TSH, normal transaminase levels, normal magnesium, mild hyperkalemia but initially 5.8 before trending down to 5.2. Abnormal renal function but similar to patient's baseline. Chest x-ray 10/02/2023: No acute process per radiology. Medications Administered Current Inpatient Medications Acetaminophen (Acetaminophen 325 Mg Tab) 650 mg PO Q4H PRN PRN Reason: Pain or Fever Stop: 11/02/23 02:11 Metoprolol Tartrate (Metoprolol Tartrate 25 Mg Tab) 25 mg PO BID [facility] Stop: 11/02/23 20:59 Pravastatin Sodium (Pravastatin Sod 10 Mg Tab) 10 mg PO DAILY [facility] Stop: 11/02/23 08:59 Last Admin: 10/03/23 10:28 Dose: 10 mg Rivaroxaban (Rivaroxaban 20 Mg Tab) 20 mg PO QDD [facility] Stop: 11/02/23 16:29 Last Admin: 10/03/23 15:41 Dose: 20 mg PG Care Time/CCT Total # of Minutes Spent Total Time Spent with Patient: Total time spent is greater than 50% in coordination of care (as documented) at patient's floor/unit and/or counseling patient: Coding Level of Care Code 45834 INT INP/OBS CARE 3/75MIN Diagnoses Permanent atrial fibrillation I48.21 Bradycardia R00.1 Nonischemic cardiomyopathy I42.8 Mitral regurgitation I34.0 Tricuspid regurgitation I07.1 HFrEF (heart failure with reduced ejection fraction) I50.20 Thoracic aortic aneurysm I71.2 Acute hyperkalemia E87.5 Hypertension I10 Hypertension type: unspecified Tachy-kofi syndrome I49.5 (9) Hypertension Hypertension type: unspecified Qualified Code(s): I10 - Essential (primary) hypertension
[2023-10-03] MEDS: METOPROLOL TARTRATE 25 MG TAB PO SCH (20:02)
--- NOTE | 2023-10-03 22:45 | Electrocardiogram Report ---
Test Reason : Blood Pressure : / mmHG Vent. Rate : 081 BPM Atrial Rate : 000 BPM P-R Int : 000 ms QRS Dur : 106 ms QT Int : 390 ms P-R-T Axes : 000 028 062 degrees QTc Int : 453 ms Atrial fibrillation Abnormal ECG When compared with ECG of 01-AUG-2023 10:46, No significant change Confirmed by Nelson Baker ([id number]) on 10/03/2023 10:45:42 PM Referred By: REFERRED SELF Confirmed By:Nelson Baker
--- NOTE | 2023-10-03 22:46 | Electrocardiogram Report ---
Test Reason : Blood Pressure : / mmHG Vent. Rate : 071 BPM Atrial Rate : 000 BPM P-R Int : 000 ms QRS Dur : 110 ms QT Int : 404 ms P-R-T Axes : 000 037 057 degrees QTc Int : 439 ms Atrial fibrillation Abnormal ECG When compared with ECG of 02-OCT-2023 20:14, No significant change Confirmed by Nelson Baker ([id number]) on 10/03/2023 10:46:34 PM Referred By: REFERRED SELF Confirmed By:Nelson Baker
[2023-10-04 06:22] LABS: Hematocrit (blood only) 31.6 % (42.0-52.0); Hemoglobin 10.2 g/dl (14.0-18.0); Mean Corpuscular Hemoglobin 29.1 pg (25.0-34.0); Mean Corpuscular Hgb Conc 32.3 g/dL (32.0-36.0); Mean Corpuscular Volume 90.3 fL (80.0-100.0); Mean Platelet Volume 9.5 fL (9.4-12.4); Platelet Count 182 K/uL (130-400); RDW Coefficient of Variation 13.8 % (11.5-14.5); RDW Standard Deviation 45.3 fL (36.4-46.3); White Blood Count 5.82 K/ul (4.8-10.8)
[2023-10-04 06:34] LABS: BUN Creatinine Ratio 31.9 (10-20); Calcium 9.1 mg/dl (8.6-10.3); Creatinine Clr Calc Pharmacy 77.7 ml/min; Est GFR (African American) 61.2 ml/min; Est GFR (Non-African American) 52.8 ml/min; Magnesium 1.9 mg/dl (1.7-2.4); Potassium 4.7 mmol/L (3.5-5.1)
--- NOTE | 2023-10-04 10:55 | Cardiology Progress Note ---
Date of Service October 04, 2023 Assessment & Plan (1) Permanent atrial fibrillation: (2) Bradycardia: (3) Nonischemic cardiomyopathy: (4) Mitral regurgitation: (5) Tricuspid regurgitation: (6) HFrEF (heart failure with reduced ejection fraction): (7) Thoracic aortic aneurysm: (8) Acute hyperkalemia: (9) Hypertension: (10) Tachy-kofi syndrome: Plan ASSESSMENT/PLAN: 1. Atrial fibrillation: Permanent. Asymptomatic. On appropriate anticoagulation with Xarelto. This appears to be dosed appropriately based on his renal function (current renal function). Rate control seems problematic at this point as his medication has been held. Will increase metoprolol and m onitor the effect. He seemed to do well in the past with metoprolol succinate 100 mg daily. I think it would be a reasonable dose for discharge if he is feeling well when ambulatory. He can follow-up in the clinic in the next 7-10 days for re-evaluation. 2. Tachybradycardia syndrome: I think his overall rate control and medical management would be easier with a pacemaker. I am concerned that he does have tachy-kofi syndrome. I did recommend a permanent pacemaker but he is concerned about the recovery in the need to perform some significant activity in the near term. As such, he was not interested in a device currently but may be more amenable once his working season has ended in the fall. We did discuss the potential consequences of continuing with only medical therapy. This would include recurrent events of bradycardia and possibly syncope. Given his wishes we can attempt to find an adequate dose of medication. I would avoid digoxin currently given the potential for toxicity. He seemed to do well on metoprolol 100 mg previously and I think that would be reasonable dose for discharge. 3. Nonischemic cardiomyopathy: Longstanding. Had cardiac catheterization in 2016. Avoiding mineralocorticoid receptor antagonist and ARNI/ACEI therapies due to ongoing issues with hyperkalemia. Repeat echocardiogram demonstrated mildly reduced LV systolic function. He would benefit from an SGLT 2 inhibitor. 4. Heart failure with midrange EF: He does not appear to be significantly hypervolemic. Has Lasix available as needed at home. Medical therapy is challenging given recent issues with hyperkalemia, and therefore would avoid ARNI/HARRY inhibitor and mineralocorticoid receptor antagonist. Consider SGLT2 inhibitor. 5. Dilated thoracic aorta: Recommend annual surveillance. Avoid strenuous lifting for which the Valsalva maneuver is required. Continue beta-ruiz if tolerated. Blood pressure control. Avoid fluoroquinolones. 6. Hypertension: Blood pressure mostly elevated. He has resumed metoprolol. For persistently elevated blood pressures we could consider amlodipine. 7. Mitral and tricuspid regurgitation: Mild mitral regurgitation. 8. Pulmonary hypertension: Likely related to his diastolic dysfunction. Biatrial enlargement and significant LVH noted on echocardiography which would support this diagnosis. Add SG LT 2 inhibitor. Avoid spironolactone due to history of hyperkalemia. Continue beta-ruiz, good rate control and blood pressure control. Diuresis as needed Admission and Anticipated Discharge Date Admission Date: October 03, 2023 Subjective This morning patient claims to be feeling well. In fact, he stated that he felt essentially back to normal as soon as he had a saline infusion in the emergency room. No additional episodes of head jett. He has been ambulatory around his room without symptoms. He does recognize some element of tachycardia at times. No dizziness or lightheadedness. Review of Systems Review of Systems: Per HPI Physical Exam Physical Exam: The patient is alert and oriented. Mood and affect appeared normal. He answered all questions appropriately. HEENT: Pupils are equal and reactive to light and accommodation. Extraocular movements are intact. The sclerae are anicteric. Neuro: Cranial nerves intact Lungs: Normal respiratory effort Cardiac: Irregular rhythm Pulses: The patient has palpable radial pulses bilaterally that are equal in intensity Extremities: There was no evidence of hypoperfusion. There is no cyanosis or clubbing. Skin: I did not appreciate any rashes on examination today. Results & Data Vital Signs (Past 12 Hours) Vital Signs Temp Pulse Pulse Resp BP BP Pulse Ox 10/04/23 09:30 140 H 10/04/23 07:43 36.5 C 84 20 175/108 H 97 10/04/23 03:04 36.3 C L 79 18 168/99 H 96 10/04/23 00:13 36.3 C L 83 18 163/113 H 95 10/03/23 22:52 36.9 C 149/92 H 10/03/23 22:52 69 20 96 O2 Del Method 10/04/23 09:30 10/04/23 07:43 Room Air 10/04/23 03:04 Room Air 10/04/23 00:13 Room Air 10/03/23 22:52 10/03/23 22:52 Room Air Laboratory Results Abnormal Lab Results 10/03/23 10/04/23 11:00 05:26 WBC 5.82 RBC 3.50 L Hgb 10.2 L Hct 31.6 L MCV 90.3 MCH 29.1 MCHC 32.3 RDW Std Deviation 45.3 RDW Coeff of Dennis 13.8 Plt Count 182 MPV 9.5 Sodium 140 Potassium 4.7 Chloride 108 H Carbon Dioxide 25 Anion Gap 7 BUN 43 H Creatinine 1.35 Est Cr Clr Drug Dosing 77.7 Est GFR ( Amer) 61.2 Est GFR (Non-Af Amer) 52.8 BUN/Creatinine Ratio 31.9 H Glucose 103 H Calcium 9.1 Magnesium 1.9 Nasal Screen MRSA (PCR) Negative Diagnostic Findings Echocardiogram performed 10/04/2023: Ejection fraction 45-50%. Severe LVH. Moderately dilated right ventricle with normal systolic function. Severe biatrial dilation. Mild mitral regurgitation. Pulmonary hypertension with estimated right ventricular systolic pressure of 65 mm of mercury. PG Care Time/CCT Total # of Minutes Spent Total Time Spent with Patient: Total time spent is greater than 50% in coordination of care (as documented) at patient's floor/unit and/or counseling patient: Coding Level of Care Code 96936 SUB INP/OBS CARE 2/35MIN Diagnoses Permanent atrial fibrillation I48.21 Bradycardia R00.1 Nonischemic cardiomyopathy I42.8 Mitral regurgitation I34.0 Tricuspid regurgitation I07.1 HFrEF (heart failure with reduced ejection fraction) I50.20 Thoracic aortic aneurysm I71.2 Acute hyperkalemia E87.5 Hypertension I10 Hypertension type: unspecified Tachy-kofi syndrome I49.5 (9) Hypertension Hypertension type: unspecified Qualified Code(s): I10 - Essential (primary) hypertension
--- NOTE | 2023-10-04 11:01 | XCELERA ---
[id number]
[2023-10-04] MEDS: METOPROLOL TARTRATE 25 MG TAB PO ONE ×2 (11:44→17:34)
--- NOTE | 2023-10-04 16:53 | Discharge Summary ---
Date of Service October 04, 2023 Admission HPI Per Admitting Provider Victorino Paris is a 72yo male with history of pre-DM, HTN, HLP, AF and solitary kidney presenting with symptomatic bradycardia. Patient was in his usual state of health until this afternoon around 16:00 when he developed a dizzy sensation which he described as "a head jett". He checked his heart rate and blood pressure at that time and he was bradycardic with HR in the 30's. Blood pressure also low. Patient monitored his vital signs for the next several hours - HR ranging 30-48bpm and blood pressure ranging 105-126 / 50-69. Patient recently had his Metoprolol increased from 50mg daily --> 100mg --> 200mg po daily. Patient reports that he has been eating and drinking well overall. Today he drank two [employer] iced teas He denies fever, chills, cough, CP, SOB, abdominal pain, nausea, vomiting, diarrhea, syncope He had symptomatic bradycardia in the past following a hernia surgery - thought to be secondary to digoxin toxicity In the ER patient is afebrile. BP and HR have improved after administration of 500mL nss ER Course: Hydralazine 10mg IV NSS x 500mg IV Calcium gluconate 1gm Insulin 10u IV + Dextrose 50ML IV Principal Diagnosis bradycardia Discharge Exam General: patient resting comfortably, NAD, non-toxic in appearance, AA&O x 4 Skin: warm, dry, intact, no rashes or lesions HEENT: NC/AT, PERRL, EOMI, anicteric sclera, conjunctiva without injection, external ear normal to inspection and nontender, nares patent, moist mucus membranes, dentition intact, no oropharyngeal lesions, neck supple, trachea midline, no LAD, no thyromegaly, no JVD Heart: +S1/S2, regular, no m/r/g Lungs: equal air entry bilaterally, no rales/rhonchi/wheezes Abd: +BS, soft, NT/ND, no masses/organomegaly/ascites Ext: warm, 2+ pulses in UE/LE bilaterally, no clubbing/cyanosis, chronic venous stasis changes and skin darkening on bilateral LE Neuro: nonfocal, patient AA&O x 4, speech intact, no facial droop, moving all extremities on command with equal strength 5/5 Discharge Data Allergies Allergy/AdvReac Type Severity Reaction Status Date / Time No Known Allergies Allergy Unknown Verified 10/05/23 11:41 Consultations 10/02/23 23:16 ED Decision to Admit Stat 10/03/23 00:41 Consult Cardiology Routine Hospital Course (1) Bradycardia: Patient with symptomatic bradycardia prior to arrival. Now improved, HR has been above 50bpm Likely secondary to medication effects. Uncertain about patient's adherence to his home medication schedule. Possibly MELLY with hyperkalemia contributing as well -Admit to PCU, monitor HR electrolytes improved -Cardiology consultation appreciated will decrease metoprolol succinate to 100 mg PO daily will hold dig for concern for toxicity. (2) Hypertension: Blood pressure readings earlier today were low for him with symptoms present -Holding Metprolol and Digoxin -Monitor -as above (3) Atrial fibrillation: Chronic -Holding Metoprolol -Continue Rivaroxaban (4) Acute kidney injury superimposed on CKD: Elevation of BUN and Cr from baseline -Continue IVF -Hold nephrotoxic agents -Renal dosing where needed (5) Acute hyperkalemia: Elevation of K=5.8 in setting of MELLY on CKD. Uncertain if this is contributing to current symptoms -Treatment with insulin and D50 -IVF (6) Primary hypertension: Holding metoprolol for now -Monitor - may need to resume today at lower dose (7) Mixed hyperlipidemia: Chronic. Stable -Continue Pravachol BMI 43.9 kg/m*m, morbid obesity BMI is 43.9 kg/m*m. In order to capture this clinical information, either the BMI or an associated condition must explicitly be documented by the provider. As appropriate, consider documentation as suggested above. Thank you. Risk Factor(s): Caloric intake > expenditure Total Time Total Time Spent Total Time Spent (In Minutes): 32 Discharge Plan Discharge Items Patient Disposition: Home - Self-Care Reason For Visit: BRADYCARDIA Discharge Diagnosis: bradycardia Condition on Discharge: Fair Activity: Resume your previous activity Non-emergency contact: Primary Care Provider Call non-emergency contact if: you have any medication questions Follow-up/Referrals: Anastacia Hdz MD [Primary Care Provider] - Diet: Heart Healthy and Low Potassium (2gm) Addtl Attending Provider Instructions: Limit exertional activities. Will recommend metoprolol 100 mg PO HS Recommend followup with Cardiology in 2 weeks. Recommend followup with PCP inn 1-2 weeks. Pending Studies at Discharge: No Stand-Alone Forms: My [facility] [employer], Smoking Cessation Medications and DC Order Prescriptions: New metoprolol succinate 100 mg tablet extended release 24 hr 100 mg PO PM Qty: 30 0RF Continued ashwagandha extract 1 dose PO .qd dvloixc-shul-dsmge-oreg-capryl 1 dose PO .qd pravastatin 10 mg tablet 10 mg PO DAILY Qty: 90 3RF tamsulosin 0.4 mg capsule 0.4 mg PO A-C-E-zinc ox-cupric ox-lutein 7,160 unit- 113 mg-0.5 mg tablet 2 tab PO BID Xarelto 20 mg tablet 20 mg PO QAM Patient Comments: Patient only taking QOD furosemide 20 mg tablet 20 mg PO DAILY PRN (Reason: weight gain, edema, SOB) Qty: 30 3RF vitamin B complex Capsule 1 cap PO QAM multivitamin Tablet 1 tab PO QAM selenium 100 mcg tablet 100 mcg PO QAM omega-3 fatty acids-fish oil [Fish Oil] 360-1,200 mg capsule 1 cap PO QAM magnesium 200 mg tablet 400 mg PO QAM calcium carbonate [Calcium 500] 500 mg calcium (1,250 mg) tablet,chewable 500 mg PO .COMPLEX Rx Instructions: 500 mg orally 2X WK; Discontinued metoprolol succinate 200 mg tablet extended release 24 hr 200 mg PO DAILY Qty: 90 3RF digoxin 250 mcg (0.25 mg) tablet 250 mcg PO QAM Discharge Orders: Discharge Order (Routine); Ordered 10/04/23 Ordered By: Rivas Flores Admission Data Admit Date/Time: 10/03/23 00:41 Attending Provider: Rivas Flores Admit Provider: Sophia Tai Primary Care Provider: Anastacia Hdz Other Providers: Camrelo Krueger; Sophia Tai Other Interventions: Discharge Summary Assessment (RN) Last Done: 10/04/23 17:41 Coding Level of Care Code 40371 INP/OBS DISCH >30 MIN Diagnoses Bradycardia R00.1 Hypertension I10 Hypertension type: unspecified Atrial fibrillation I48.91 Atrial fibrillation type: unspecified Acute kidney injury superimposed on CKD N17.9; N18.9 Acute hyperkalemia E87.5 Primary hypertension I10 Mixed hyperlipidemia E78.2
--- NOTE | 2023-10-04 17:28 | Communication Note ---
Date of Service: October 04, 2023 By CMS guidelines, a determination that the admission or continued stay is not medically necessary has been made by a member of the UR committee and a phys ician for this hospital stay, therefore a Code 44 will be completed and the Inpatient admission will be changed to outpatient.
--- NOTE | 2023-10-04 18:29 | Communication Note ---
Date of Service: October 04, 2023 By CMS guidelines, a determination that the admission or continued stay is not medically necessary has been made by a member of the UR committee and a phy sician for this hospital stay, therefore a Code 44 will be completed and the Inpatient admission will be changed to outpatient.
[2023-10-04] MEDS ORDERED: METOPROLOL TARTRATE 50 MG TAB PO SCH (21:00)
== END 2023-10-04 18:17 | disposition home or self-care (01) | DRG 309 ==
LOC: ED 19:49 → EDINP 10-03 00:41 → SUATTDRO 10-03 00:41 → INTOOBSV 10-03 00:41 → 1E 10-03 09:05 → 2S 10-04 00:01